=== PATIENT | male | born 1965 | race Caucasian/White ===

== ENCOUNTER 2024-10-28 12:39 | Inpatient (IN) | payer MEDICAID, SELFPAY ==
[2024-10-28] VITALS (11 sets, daily range): BP systolic 142–189; BP diastolic 68–97; PULSE 62–75; RESP 16–98; TEMP 36.7–37.8; O2SAT 95–98
--- NOTE | 2024-10-28 12:44 | EKG_ITS ---
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
--- NOTE | 2024-10-28 12:51 | PC.NURSE ---
CHARGE NURSE BUSY IN ROOM. TALKED W/ MARKEL RN ABOUT POSSIBLE NEED OF ROOM. EKG BEING DONE RIGHT NOW.
--- NOTE | 2024-10-28 12:59 | XR_ITS ---
Examination: AP chest single view Technique one AP portable semiupright chest single view Date and time: October 28, 2024, 1318 hrs., Comparison April 06, 2018 Indications: Chest pain beginning 2 days ago. Findings: Minor prominence left ventricle. No pneumonia or pulmonary edema. Impression: No active disease.
--- NOTE | 2024-10-28 13:01 | EDNOTE_ITS ---
<Statement entered by Elke Ace MD - 10/29/24 14:42> I, Elke Ace MD, have reviewed the history, exam, and assessment of the patient. I have evaluated the patient independently and agree with the plan of care documented by [ ]. All diagnostic studies were reviewed and discussed. I confirm the diagnosis as documented by the Resident. I was present during the Medical Decision Making for this patient. The patient's plan of care was created between myself and the Resident and consistent with our discussion of the patient's case. ED Chest Pain RME/HPI General Chief Complaint: Chest Pain Stated Complaint: CHEST PAIN, SOB Time Seen by Provider: 10/28/24 13:01 Source: patient Arrival date/time: 10/28/24 12:39 Mode of arrival: ambulatory RME / HPI RME / HPI narrative: Mr. Stanton is a 59-year-old male with past medical history of hypertension, hyperlipidemia, seizures (on phenytoin), gout, chronic back pain and diabetes mellitus with neuropathy who presented to [facility] emergency department on October 28, 2024 with a chief complaint of chest pain. Patient reported that his chest pain started last night when he was working at home, describes it as a stabbing pain radiating to his left shoulder. Patient reported that he went to work earlier this morning and then his pain worsened and is currently also experiencing the chest pain, similar in nature, 11/23. Patient endorses some palpitations reports that he feels like his heart is beating out of his chest, complains of dizziness at times as well. Patient reported that his chest pain was relieved with nitro which was given to him earlier in the ED. He denies any nausea, vomiting, shortness of breath and headache. Patient reports history of similar episode about 5 years ago reports that he was seen at the hospital by Dr. Siddiqi and then he had a cardiac cath done about [address] Hawkins which was negative, patient reports extensive family history of cardiac disease, reports his father multiple stents and his brother has had 7 stents placed. He denies any thyroid problems, smoking and heavy alcohol use. Related Data Home Medications ?Medication ?Instructions ?Recorded ?Confirmed loratadine 10 mg tablet (Claritin) 10 mg PO QDAY #0 ta bs 10/25/15 11/23/18 metformin 1,000 mg tablet 1,000 mg PO BID #0 tabs 10/1511/23/18 (Glucophage) phenytoin sodium extended 100 mg 100 mg PO BID #0 caps 10/25/15 11/23/18 capsule aspirin 81 mg tablet,delayed 81 mg PO QDAY ##0 7 11/23/18 release (Aspir-Low) glipizide 10 mg tablet 10 mg PO DAILY #0 tabs 04/2711/23/18 gabapentin 600 mg tablet 600 mg PO TID #0 tabs 11/23/18 losartan 100 mg tablet 100 mg PO QDAY #0 tabs 06/0811/23/18 omeprazole 40 mg capsule,delayed 40 mg PO QDAY ##0 11/23/18 release tizanidine 4 mg capsule 4 mg PO TID ##90 06/08/16 topiramate 50 mg tablet (Topamax) 50 mg PO BID #0 tabs 06/08/16 11/23/18 trazodone 100 mg tablet 50 mg PO HS #0 tabs 06/08/16 11/23/18 atorvastatin 40 mg tablet 40 mg PO QPM ##0 01/07/17 hydrochlorothiazide 25 mg tablet 25 mg PO QAM #0 tabs 01/07/17 11/23/18 nabumetone 500 mg tablet 500 mg PO BID 01/16/1811/23 fluoxetine 20 mg capsule 20 mg PO DAILY 06/08/1811/14 tamsulosin 0.4 mg capsule 0.4 mg PO QDAY 08/08/1811/14 Allergies Allergy/AdvReac Type Severity Reaction Status Date / Time empagliflozin Allergy Severe PANCREATITIS Verified 10/28/24 12:43 ATTACK Review of Systems Review of Systems Systems Reviewed: All systems reviewed, normal except as documented Past Medical History Past Medical History NEUROLOGIC: Positive Neurological Disorders and Seizures CARDIAC: Positive Cardiac Disorders, Angina, Hypercholesterolemia, Edema and Hypertension; Negative Congestive Heart Failure RESPIRATORY: Positive Chronic Obstructive Pulmonary Disease (COPD) GASTROINTESTINAL: Positive Gastrointestinal Disorders and Gastroesophageal Reflux Disease GENITOURINARY: Positive Genitourinary Disorders; Negative Renal Disease or Benign Prostatic Hyperplasia REPRODUCTIVE: Negative Testicular Cancer MUSCULOSKELETAL: Positive Musculoskeletal Disorders, Arthritis and Degenerative Joint Disease ENDOCRINE: Positive Endocrine Disorders and Diabetes Mellitus Type 2; Negative Diabetes Mellitus Type 1 HEMATOLOGIC: Negative Blood Disorders PSYCHO/SOCIAL: Positive Depression OTHER HISTORY: Positive Shingles; Negative Autoimmune Disease, Falls, Blood Transfusions, Anesthesia Reactions, Organ Transplant, Chemotherapy, MRSA, Chicken Pox or Testicular Cancer Family History FAMILY HISTORY: Positive Family Respiratory Disorders, Family Cardiac Disorders, Family Cancer and Family Surgery; Negative Family Anesthesia Reaction Surgical History SURGICAL: Negative Cardiac Surgery, Endocrine Surgery, Ear Surgery, Abdominal Surgery, Nephrectomy, Joint Replacement, Neurologic Surgery, Vasectomy or Organ Transplant Social History SMOKING STATUS: Never smoker SUBSTANCE USE: does not use Travel History EBOLA RISK: No ED Exam Narrative Physical exam: Physical Exam General: Awake and in moderate acute distress. Clutching his chest complaining of chest pain. Conversational and non-toxic appearing. HEENT: Normocephalic, atraumatic, mucous membranes moist. Heart: Regular rate and rhythm, no murmurs. Lungs: Clear to auscultation with no wheezing or crackles. Abdomen: Soft, nondistended, nontender, positive bowel sounds. ?No guarding or rebound tenderness. Neurologic: Alert and oriented x3, no gross neurological deficit, and patient able to move all 4 extremities. Extremities: No edema. Skin: No rash or ecchymoses. Course Course Course Narrative: Patient complained of chest pain was given sublingual nitroglycerin reported that his pain improved to 5. EKG shows sinus rhythm no acute ST-T changes noted CBC: WBC 3.4, RBC 5.23, hemoglobin 14.4, hematocrit 40.5. CMP: Sodium 132 glucose 383, potassium 4.3, chloride 98, bicarb 25.6, BUN 16, creatinine 1.3, GFR greater than 60, calcium 10.1, magnesium 1.8, total bilirubin AST ALT within normal limits, alk phos 126 Troponin negative less than 0.20, BNP 55 Chest x-ray negative for mediastinal widening, pneumonia Patient given Aspirin loading dose, nitroglycerin patch, 3 units subcutaneous regular insulin and morphine 2 mg Case discussed with hospitalist team hospitalist requesting CTA to rule out dissection, CTA will be obtained. Hospitalist team discussed the case with final inspector Dr. Palacio, see hospitalist note for details per Dr. 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 Q4H START 00 Care 10/28/24 14:16 Active Continuous Pulse Oximetry NOW Care 10/28/24 14:16 Completed EKG (ED ONLY) *Do not use* NOW Care 10/28/24 12:44 Completed Insert IV NOW Care 10/28/24 14:[address] angio chest Stat Exams 10/28/24 14:57 Completed CXRP [XR chest 1V portable] Stat Exams 10/28/24 12:59 Completed EKG (ED Only) Stat Exams 10/28/24 12:44 Draft BNP [B-Type Natriuretic Peptide] Stat Lab 10/28/24 13:00 Completed CBC Stat Lab 10/28/24 13:00 Completed CMP [Comprehensive Metabolic Panel] Stat Lab 10/28/24 13:00 Completed Magnesium Stat Lab 10/28/24 13:00 Completed Troponin I Stat Lab 10/28/24 13:00 Completed Troponin I Stat Lab 10/28/24 14:36 Completed Aspirin Med 10/28/24 14:15 Discontinued 325 mg PO X1 ONE INSULIN LISPRO (AdmeLOG) [HumaLOG] Med 10/28/24 14:04 Discontinued 5 unit SC X1 ONE Insulin Regular Med 10/28/24 14:14 Discontinued 3 unit SC X1 ONE Morphine* Inj Med 10/28/24 14:43 Discontinued 2 mg IVP X1 ONE Nitroglycerin [Nitro-dur Patch] Med 10/28/24 14:14 Discontinued 0.4 mg TOP X1 ONE Nitroglycerin [Nitrostat 1/150] Med 10/28/24 12:58 Discontinued 0.4 mg SL X1 ONE mg Hyd/Al Hyd/Rod Susp [Maalox Susp] Med 10/28/24 14:57 Discontinued 30 ml PO X1 ONE Vital Signs Vital signs: Vital Signs Temperature 98.1 F 10/28/24 12:48 Pulse Rate 65 10/28/24 12:48 Respiratory Rate 26 H 10/28/24 12:48 Blood Pressure 189/91 H 10/28/24 12:48 Pulse Oximetry (%) 98 10/28/24 12:48 Oxygen Delivery Method Room Air 10/28/24 12:48 Chest Pain MDM Narrative MDM Narrative:: #ACS rule out #Cardiac vs Non-Cardiac chest pain #PE, provoked vs unprovoked Patient presented with chest pain reported to be on the left side of his chest radiating back to his scapula and left upper extremity. Pain started after exertion yesterday at home, reports sudden onset constant increasing in severity. Reports that he went to work earlier this morning and his pain worsened and he decided to come to ED for evaluation. EKG negative for any acute ST-T changes, troponin negative x 2 Patient has hypertension hyperlipidemia diabetes mellitus and strong family history of cardiac disease (in father and brother) Patient continues to have pain reports did improve with nitro, was given nitro patch and morphine Case discussed with hospitalist team hospitalist requesting CTA to rule out dissection, CTA will be obtained. Hospitalist team discussed the case with final inspector Dr. Palacio, see hospitalist note for details per Dr. Palacio patient's chest pain is noncardiac and patient is stable to be discharged CTA Chest Positive for small pulmonary artery emboli in right lower lobe pulmonary artery branches 1700 Hospitalist Team Consulted again, they will admit the patient for further workup Case discussed with Attending Physician Dr. Db Dias MD Internal Medicine PGY-2 Disclaimer: This note was dictated by speech recognition. Minor errors in construction skills teacher may be present due to voice recognition software. Patient data External records reviewed:: [facility] previous records Clinical information provided by:: patient Social determinants that could affect healthcare access:: none Patient has the following chronic illnesses:: as above How is presenting disease/condition affected by chronic disease/condition?: exacerbated by Evaluation data The following diagnostics were reviewed and interpreted by me:: lab results, radiology exam(s) and EKG tracing(s) Lab and/or radiology exams considered but not ordered:: None Interpretation Summary: EKG shows sinus rhythm no acute ST-T changes noted CBC: WBC 3.4, RBC 5.23, hemoglobin 14.4, hematocrit 40.5. CMP: Sodium 132 glucose 383, potassium 4.3, chloride 98, bicarb 25.6, BUN 16, creatinine 1.3, GFR greater than 60, calcium 10.1, magnesium 1.8, total bilirubin AST ALT within normal limits, alk phos 126 Troponin negative less than 0.20, BNP 55 Chest x-ray negative for mediastinal widening, pneumonia Repeat Troponin negative less than 0.20 CTA Chest CTA Chest Positive for small pulmonary artery emboli in right lower lobe pulmonary artery branches Medications / Prescriptions Medications or Prescriptions considered but not ordered:: None Medication administrations:: Medication Administration History Discontinued Medications Al Hydrox/Mg Hydrox/Simethicone (Mg Hyd/Al Hyd/Rod (Maalox Reg) Susp 30 Ml Udc) 30 ml PO X1 ONE Stop: 10/28/24 14:58 Last Admin: 10/28/24 15:04 Dose: 30 ml Documented By: BOBO Aspirin (Aspirin 325 Mg Tablet) 325 mg PO X1 ONE Stop: 10/28/24 14:16 Last Admin: 10/28/24 14:28 Dose: 325 mg Documented By: BOBO Insulin Human Lispro (Insulin Lispro (Admelog) 1 Unit/0.01 Ml Unit) 5 unit SC X1 ONE Stop: 10/28/24 14:05 Last Admin: 10/28/24 14:40 Dose: Not Given Documented By: BOBO Non-Admin Reason: Cancelled by Provider Insulin Human Regular (Insulin Hum Regular 1 Unit/0.01 Ml (Per Unit)) 3 unit SC X1 ONE Stop: 10/28/24 14:15 Last Admin: 10/28/24 14:32 Dose: 3 unit Documented By: BOBO Co-signed By: ROSSY Morphine Sulfate (Morphine Sulf Inj 4 Mg/Ml Vial) 2 mg IVP X1 ONE Stop: 10/28/24 14:44 Last Admin: 10/28/24 15:03 Dose: 2 mg Documented By: BOBO Nitroglycerin (Nitroglycerin 0.4 Mg Subl Btl #25) 0.4 mg SL X1 ONE Stop: 10/28/24 12:59 Last Admin: 10/28/24 13:18 Dose: 1 bottle Documented By: BOBO Nitroglycerin (Nitroglycerin 0.4 Mg/Hr Patch.Td24) 0.4 mg TOP X1 ONE Stop: 10/28/24 14:15 Last Admin: 10/28/24 14:30 Dose: 0.4 mg Documented By: BOBO As Above Consultations Consultation(s) initiated? (list below): No Diagnosis Chest Pain Differential Diagnosis: stable angina, unstable angina pectoris, atypical chest pain, st elevation myocardial infarction and chest pain Most likely diagnosis given after review of the tests above:: Unstable Angina vs PE Admission Indicated Admission indicated?: indicated Admission Request Was there a request for admission?: Yes Admission Attestation Admission request attestation: Discussed case with Dr Russo from Hospitalist service regarding admission. Discussed patients ED course, exam findings, labs, and radiology results. The Hospitalist agrees to accept the patient for admission. Disposition Plan Disposition Plan: Admit Discharge Plan Plan Patient Disposition: Admit Acute Care w/in Hospital Prescriptions/Referrals Prescriptions/Med Rec: No Action tamsulosin 0.4 mg capsule 0.4 mg PO QDAY metformin [Glucophage] 1,000 MG tablet 1,000 mg PO BID Qty: 0 phenytoin sodium extended 100 mg Capsule 100 mg PO BID Qty: 0 Patient Comments: FOR SEIZURE CONTROL loratadine [Claritin] 10 MG tablet 10 mg PO QDAY Qty: 0 glipizide 10 MG tablet 10 mg PO DAILY Qty: 0 aspirin [Aspir-Low] 81 mg Tablet,Delayed Release (Dr/Ec) 81 mg PO QDAY Qty: 0 gabapentin 600 MG tablet 600 mg PO TID Qty: 0 omeprazole 40 MG capsule,delayed release(DR/EC) 40 mg PO QDAY Qty: 0 trazodone 100 mg Tablet 50 mg PO HS Qty: 0 losartan 100 mg Tablet 100 mg PO QDAY Qty: 0 topiramate [Topamax] 50 MG tablet 50 mg PO BID Qty: 0 tizanidine 4 mg Capsule 4 mg PO TID Qty: 90 atorvastatin 40 mg Tablet 40 mg PO QPM Qty: 0 hydrochlorothiazide 25 MG tablet 25 mg PO QAM Qty: 0 nabumetone 500 mg Tablet 500 mg PO BID fluoxetine 20 mg Capsule 20 mg PO DAILY Referrals: No Primary/Family,Physician [Primary Care Provider] - In 1 week Problem List Clinical Impression: Cardiac chest pain Patient/Caregiver Discharge Instructions Print Language: Cymraes Stand Alone Forms: [employer] Award Info., Patient Portal Info Letter
--- NOTE | 2024-10-28 13:13 | PC.NURSE ---
PATIENT ARRIVED ED WITH COMPLAINT OF CHEST PAIN, PATIENT STATES HE HAD PAIN LAST NIGHT AND HE CAME BACK TODAY. PATIENT DENIES NAUSEA OR VOMITING AND DESCRIBES PAIN TO BE SHARP AND RADIATES TO LEFT ARM. IV, MONITOR ESTABLISHED. CALL LIGHT WITHIN REACH.
[2024-10-28] MEDS: NITROGLYCERIN 0.4 MG SUBL BTL #25 SL (13:18)
[2024-10-28 13:36] LABS: Basophils # (Auto) 0.1 Thou/mm3 (0.0-0.2); Basophils % (Auto) 1 % (0-2.5); Eosinophils # (Auto) 0.1 Thou/mm3 (0.0-0.5); Eosinophils % (Auto) 2 % (0-10); Hematocrit 40.5 % (41.0-53.0); Hemoglobin 14.4 g/dL (13.5-16.0); Immature Granulocytes Auto 0.05 Thou/mm3 (0.00-0.00); Lymphocytes # (Auto) 2.4 Thou/mm3 (1.0-4.8); Lymphocytes % (Auto) 28 % (10-50); Mean Corpuscular HGB Conc 35.6 g/dl (31.0-37.0); Mean Corpuscular Hemoglobin 27.5 pg (25.0-35.0); Mean Corpuscular Volume 77 fL (80-100); Monocytes # (Auto) 0.7 Thou/mm3 (0.0-0.8); Monocytes % (Auto) 8 % (0-12); Neutrophils # (Auto) 5.2 Thou/mm3 (1.8-7.7); Neutrophils % (Auto) 62 % (37-80); Nucleated Red Blood Cell # 0.00 Thou/mm3 (0.00-0.00); Nucleated Red Blood Cell % 0 /100 WBC (0); Platelet Count 221 Thou/mm3 (140-440); RDW Standard Deviation 35.4 fL (35.1-43.9); Red Blood Count 5.23 Miln/mm3 (4.50-5.90); White Blood Count 8.4 Thou/mm3 (3.8-10.6)
[2024-10-28 14:02] LABS: Alanine Aminotransferase 22 U/L (10-49); Albumin, Serum 4.4 gm/dL (3.5-5.0); Albumin/Globulin Ratio 1.5 (1.2-2.2); Alkaline Phosphatase 126 U/L (46-116); Anion Gap 8 (7-16); Aspartate Amino Transferase 22 U/L (0-34); BUN/Creatinine Ratio 12 Ratio (12-20); Bilirubin,Total 0.6 mg/dL (0.3-1.2); Blood Urea Nitrogen 16 mg/dL (9-23); Calcium 10.1 mg/dL (8.3-10.6); Calcium (Corrected) 10.1 mg/dL (8.5-10.1); Carbon Dioxide 25.6 mMol/L (20.0-31.0); Chloride 98 mMol/L (98-107); Creatinine (Component) 1.3 mg/dL (0.6-1.3); Globulin 3.0 gm/dL (2.3-3.5); Glucose 383 mg/dL (74-106); Magnesium 1.8 mg/dL (1.6-2.6); Osmolality,Calculated 281 (275-295); Potassium 4.3 mMol/L (3.4-5.1); Sodium 132 mMol/L (136-145); Total Protein 7.4 gm/dL (5.7-8.2); Troponin I < 0.020 ng/mL (0.0-0.045); eGFR > 60 See Note
[2024-10-28 14:06] LABS: B-Type Natriuretic Peptide 55 pg/mL (0-100)
[2024-10-28] MEDS: NITROGLYCERIN 0.4 MG/HR PATCH.TD24 TOP (14:30)
[2024-10-28] MEDS: INSULIN HUM REGULAR 1 UNIT/0.01 ML (PER UNIT) 3 UNIT SC (14:32)
--- NOTE | 2024-10-28 14:57 | XR_ITS ---
Examination: CTA chest with intravenous contrast 2-D reconstructions 3-D reconstructions, vascular Date and time of exam: October 17 been 2024, 1735 hrs. Indications: Chest pain shortness of breath today. CTDI: vol (mGy) 167. DLP: (mGycm) 422. Technique: Multiple axial sections of the thorax have been obtained. 3 mm slice thickness, from below the hemidiaphragms to above the apices of the lungs. Mediastinal and lung density settings have been obtained. 2-D sagittal and coronal reconstructions. 3-D angiographic renderings, 3-D volume renderings, 3D post processing, vascular maximum intensity projections obtained. Contrast administered is 100 cc Isovue-370.. Low dose protocols were performed. One or more of the following dose reduction techniques were used; automated exposure control, adjustment of the mA and/or KV according to patient size, use of iterative reconstruction technique. Findings: No thoracic aortic aneurysmal dilatation or dissection. Positive for pulmonary artery emboli in lower lobe pulmonary artery branches No paratracheal tracheobronchial or bronchopulmonary adenopathy Moderate vascular congestion. No lobar pneumonia or pulmonary edema Liver is mildly irregular in contour, no gallstones visualized Spleen is not enlarged No pancreatic mass Impression: Negative for thoracic aortic aneurysmal dilatation or dissection Positive for small pulmonary artery emboli in right lower lobe pulmonary artery branches
[2024-10-28] MEDS: MORPHINE SULF INJ 4 MG/ML VIAL 2 MG IVP ×2 (15:03→19:04)
[2024-10-28] MEDS: MG HYD/AL HYD/SIME (Maalox Reg) SUSP 30 ML UDC PO (15:04)
[2024-10-28 15:19] LABS: Troponin I < 0.020 ng/mL (0.0-0.045)
--- NOTE | 2024-10-28 16:30 | PC.NURSE ---
PATIENT IN ROOM WITH COMPLAINT OF DIZZINESS AND CONFUSION PER . ALSO STATES THAT PATIENT HAS NOT BEEN SLEEPING FOR THE LAST 3 NIGHTS SO THIS MORNING HE TOOK TRAZADONE AT 0900 AND BECAME EVEN MORE CONFUSED. PATIENT IN ROOM WITH NO COMPLAINT OF PAIN. PATIENT ACTING BIZARRE AND LAUGHING. PATIENT ABLE TO FOLLOW COMMANDS BUT HAS OUTBURSTS. STATES SHE IS CONCERNED THAT PATIENT HAS TAKEN SOME SORT OF DRUGS. PATIENT WILL BE EVALUATED AT THIS TIME.
--- NOTE | 2024-10-28 17:13 | XR_ITS ---
Examination: Venous duplex lower extremity sonogram, bilateral. Date and time of exam: October 28, 2024, 1907 hrs. Indications: Chest pain beginning 4 days ago, small lower lobe right pulmonary artery emboli on CT chest study today Technique: Multiple sonographic images of the deep venous system have been obtained. B-mode/2-D grayscale imaging of vascular structures and Doppler spectral analysis (waveforms) and color performed Both legs are examined. Findings: Deep venous systems do not demonstrate abnormal echogenicity. All visualized deep veins exhibit compressibility. All visualized deep veins exhibit augmentation. Impression: Negative for deep vein thrombosis
--- NOTE | 2024-10-28 17:17 | ECHO_ITS ---
Transthoracic Echo Report Ht (in): 70 Wt (lb): 200 Exam Location: Echo Lab Status: Emergency Risk Modeler: Shauna Aiken Indications: Procedure Performed: BP: 141 / 79 HR: 73 MEASUREMENTS (Male / Female) Normal Values 2D ECHO LV Diastolic Diameter PLAX 4.2 cm 4.2 - 5.9 / 3.9 - 5.3 cm LV Systolic Diameter PLAX 2.7 cm IVS Diastolic Thickness 1.2 cm 0.6 - 1.0 / 0.6 - 0.9 cm LVPW Diastolic Thickness 1.2 cm 0.6 - 1.0 / 0.6 - 0.9 cm LV Relative Wall Thickness 0.6 LVOT Diameter 2.0 cm Aortic Root Diameter 3.3 cm LA Systolic Diameter LX 3.5 cm 3.0 - 4.0 / 2.7 - 3.8 cm LV Ejection Fraction MOD BP 61.4 % >= 55 % LV Cardiac Index MOD BP 2579.7 cm?/min?m? LV Ejection Fraction MOD 4C 60.8 % LV Cardiac Index MOD 4C 2473.8 cm?/min?m? LV Ejection Fraction 4C AL 61.9 % LV Cardiac Index 4C AL 2631.6 cm?/min?m? LV Ejection Fraction MOD 2C 58.5 % LV Cardiac Index MOD 2C 2340.6 cm?/min?m? LV Ejection Fraction 2C AL 60.2 % LV Cardiac Index 2C AL 2426.6 cm?/min?m? M-MODE Aortic Root Diameter MM 2.7 cm LA Systolic Diameter MM 4.2 cm LA Ao Ratio MM 1.6 AV Cusp Separation MM 1.9 cm DOPPLER AV Peak Velocity 148.0 cm/s AV Peak Gradient 8.8 mmHg AV Mean Gradient 5.0 mmHg AV Velocity Time Integral 29.8 cm LVOT Peak Velocity 126.0 cm/s LVOT Peak Gradient 6.4 mmHg LVOT Velocity Time Integral 28.7 cm LVOT Cardiac Index 3080.8 cm?/min?m? AV Area Cont Eq vti 3.0 cm? AV Area Cont Eq pk 2.7 cm? MV Area PHT 3.0 cm? Mitral E Point Velocity 58.2 cm/s Mitral A Point Velocity 59.2 cm/s Mitral E to A Ratio 1.0 LV E' Lateral Velocity 10.4 cm/s Mitral E to LV E' Lateral Ratio 5.6 LV E' Septal Velocity 6.9 cm/s Mitral E to LV E' Septal Ratio 8.5 TR Peak Velocity 251.0 cm/s TR Peak Gradient 25.2 mmHg PV Peak Velocity 126.0 cm/s PV Peak Gradient 6.4 mmHg FINDINGS Left Ventricle Normal left ventricular size, wall thickness, systolic function with no obvious regional wall motion abnormalities. Normal left ventricular diastolic filling pattern for age. The ejection fraction is visually estimated at 65 %. Right Ventricle The right ventricle is normal in size and systolic function. Left Atrium The left atrium is normal by two-dimensional, color flow and Doppler imaging with no structural abnormalities, no thrombus formation present. Right Atrium The right atrium is normal by two-dimensional imaging, color flow and Doppler imaging with no structural abnormalities, no thrombus formation present. Atrial Septum The interatrial septum appears normal with no evidence of a shunt. Aorta The aorta is normal by two-dimensional, color flow and Doppler interrogation. Mitral Valve The mitral valve is normal by two-dimensional, color flow and Doppler interrogation. There is no significant mitral valve regurgitation, stenosis or prolapse. Aortic Valve The aortic valve is trileaflet and normal by two-dimensional, color flow and Doppler interrogation. There is no significant aortic valve regurgitation. Tricuspid Valve The tricuspid valve is normal by two-dimensional, color flow and Doppler interrogation. There is trace tricuspid valve regurgitation. Pulmonic Valve The pulmonic valve is not well visualized. There is no significant pulmonic valve regurgitation. Vessels The pulmonary artery appears normal. The inferior vena cava pulmonary and hepatic veins appear normal. Pericardium The pericardium is normal by two-dimensional imaging. There is no significant pericardial effusion. CONCLUSIONS Indicaiton: Pulmonary embolism The transthoracic study is normal by two-dimensional, color flow imaging and Doppler interrogation. Normal LV size and function. Approximate ejection fraction is 65%. The RV is normal in size and systolic function. Mild to trace tricuspid valve regurgitation normal PA pressure no evidence of pulmonary hypertension. No evidence of right ventricular volume or pressure overload. Hayley Nagel (Electronically Signed) Final Date: 30 October 2024 18:02
--- NOTE | 2024-10-28 17:27 | PD.RESHP ---
Documentation for date of: 10/28/24 [facility] History of Present Illness Chief complaint: Chest pain History of present illness: 59-year-old male with significant past medical history of hypertension, hyperlipidemia, seizure disorder, gout, chronic back pain, diabetes mellitus, diabetic neuropathy, panic attacks, GERD presented to the hospital with chief complaints of severe chest pain since yesterday. Patient reported that he was doing routine house chores, cleaning the dishes and noted sudden onset chest pain, located in the center, stabbing type, radiating to the back of the chest and to the jaw associated with mild diaphoresis, palpitations but denies shortness of breath, pedal edema. Reported that pain is continuous and noted to be worsening with the physical exertion. Despite of the chest pain, patient went to his work and after working for 3 hours, as the pain is bothering him he came to the ED for further evaluation. Denies fever, nausea, vomitings, diarrhea, abdominal pain, syncopal episode, pedal edema, orthopnea, PND. Patient had similar complaints almost 5 years ago for which he followed with Dr. Hawkins in [place] and got cardiac cath at that time that did not show any significant abnormality and also reported that he is not taking any aspirin. After that he did not follow-up with any physical testing supervisor and does not follow-up with his primary care provider regularly. ED course: - Vitals at the time of admission is significant for blood pressure 189/91 mmHg, respiratory 26/min - Labs at the time of admission are significant for sodium 132, creatinine 1.3, glucose 383, troponin is negative - EKG done at the time of admission showed normal sinus rhythm with first-degree heart block without any ST T wave changes - Chest x-ray done at the time of admission did not show any infiltrates - CT angio chest was done that is negative for aneurysm/dissection but noted to have small pulmonary artery emboli in the right lower lobe pulmonary artery branches. - Patient is admitted in the hospital in view of pulmonary embolism Past medical history: As per HPI Past surgical history: As per HPI Social history: Lives alone at home. Recently lost her 4 months ago. Denies smoking, alcohol, other illicit drug abuse. Allergies: Empagliflozin Review of Systems Review of Systems Systems Reviewed: All systems reviewed, normal except as documented Past Medical History Past Medical History NEUROLOGIC: Positive Neurological Disorders and Seizures CARDIAC: Positive Cardiac Disorders, Angina, Hypercholesterolemia, Edema and Hypertension; Negative Congestive Heart Failure RESPIRATORY: Positive Chronic Obstructive Pulmonary Disease (COPD) GASTROINTESTINAL: Positive Gastrointestinal Disorders and Gastroesophageal Reflux Disease GENITOURINARY: Positive Genitourinary Disorders; Negative Renal Disease or Benign Prostatic Hyperplasia REPRODUCTIVE: Negative Testicular Cancer MUSCULOSKELETAL: Positive Musculoskeletal Disorders, Arthritis and Degenerative Joint Disease ENDOCRINE: Positive Endocrine Disorders and Diabetes Mellitus Type 2; Negative Diabetes Mellitus Type 1 HEMATOLOGIC: Negative Blood Disorders PSYCHO/SOCIAL: Positive Depression OTHER HISTORY: Positive Shingles; Negative Autoimmune Disease, Falls, Blood Transfusions, Anesthesia Reactions, Organ Transplant, Chemotherapy, MRSA, Chicken Pox or Testicular Cancer Family History FAMILY HISTORY: Positive Family Respiratory Disorders, Family Cardiac Disorders, Family Cancer and Family Surgery; Negative Family Anesthesia Reaction Surgical History SURGICAL: Negative Cardiac Surgery, Endocrine Surgery, Ear Surgery, Abdominal Surgery, Nephrectomy, Joint Replacement, Neurologic Surgery, Vasectomy or Organ Transplant Social History SMOKING STATUS: Never smoker SUBSTANCE USE: does not use Travel History EBOLA RISK: No Exam Vital Signs Temp Pulse Resp BP Pulse Ox O2 Del Method 99.3 F 63 16 142/82 H 95 Room Air 10/28/24 16:37 10/28/24 16:37 10/28/24 16:37 10/28/24 16:37 10/28/24 16:37 10/28/24 16:37 Narrative Exam General: Awake. appears in distress HEENT: Normocephalic, atraumatic, mucous membranes moist. Heart: Regular rate and rhythm, no murmurs. Lungs: Clear to auscultation with no wheezing or crackles. Abdomen: Soft, nondistended, nontender, positive bowel sounds. ?No guarding or rebound tenderness. Neurologic: Alert and oriented x3, no gross neurological deficit, and patient able to move all 4 extremities. Extremities: No edema. Skin: No rash or ecchymoses. Results: Labs 10/29/24 04:44 10/29/24 04:44 Labs: Short CBC 10/28/24 Range/Units 13:00 WBC 8.4 (3.8-10.6) Thou/mm3 Hgb 14.4 (13.5-16.0) g/dL Hct 40.5 L (41.0-53.0) % Plt Count 221 (140-440) Thou/mm3 BMP 10/28/24 13:00 Sodium 132 L Potassium 4.3 Chloride 98 Carbon Dioxide 25.6 BUN 16 Creatinine 1.3 Glucose 383 H Calcium 10.1 Cardiac Enzymes 10/28/24 10/28/24 Range/Units 13:00 14:36 Troponin I < 0.020 < 0.020 (0.0-0.045) ng/mL Liver Function 10/28/24 Range/Units 13:00 Total Bilirubin 0.6 (0.3-1.2) mg/dL AST 22 (0-34) U/L ALT 22 (10-49) U/L Alkaline Phosphatase 126 H (46-116) U/L Albumin 4.4 (3.5-5.0) gm/dL Quality Measures Quality Measures none Medications Home Medications and Allergies Home Medications ?Medication ?Instructions ?Recorded ?Confirmed ?Type loratadine 10 mg tablet (Claritin) 10 mg PO QDAY #0 tabs 10/25/15 10/28/24 History metformin 1,000 mg tablet 1,000 mg PO BID #0 tabs 10/25/15 10/28/24 History (Glucophage) gabapentin 600 mg tablet 600 mg PO TID #0 tabs 06/08/16 10/28/24 History losartan 100 mg tablet 100 mg PO QDAY #0 tabs 06/08/16 10/28/24 History omeprazole 40 mg capsule,delayed 40 mg PO QDAY ##0 06/08/16 10/28/24 History release atorvastatin 40 mg tablet 40 mg PO QPM ##0 01/07/17 10/28/24 History hydrochlorothiazide 25 mg tablet 25 mg PO QAM #0 tabs 01/07/17 10/28/24 History nabumetone 500 mg tablet 500 mg PO BID 01/16/18 10/28/24 History fluoxetine 20 mg capsule 20 mg PO DAILY 06/08/18 10/28/24 History allopurinol 100 mg tablet 100 mg PO .everyday 10/28/24 10/28/24 History atenolol 100 mg tablet 100 mg PO HS 10/28/24 10/28/24 History fenofibrate 160 mg tablet 160 mg PO .everyday 10/28/24 10/28/24 History hydroxyzine HCl 50 mg tablet 50 mg PO HS 10/28/24 10/28/24 History phenytoin sodium extended 100 mg 100 mg PO .everyday 10/28/24 10/28/24 History capsule pravastatin 80 mg tablet 80 mg PO .everyday 10/28/24 10/28/24 History tizanidine 4 mg tablet 4 mg PO HS 10/28/24 10/28/24 History trazodone 100 mg tablet 100 mg PO HS 10/28/24 10/28/24 History valsartan 160 mg tablet 160 mg PO .Am 10/28/24 10/28/24 History Allergies Allergy/AdvReac Type Severity Reaction Status Date / Time empagliflozin Allergy Severe PANCREATITIS Verified 10/28/24 12:43 ATTACK Visit Medications Acetaminophen (Acetaminophen 325 Mg Tablet) 650 mg PO Q6H PRN PRN Reason: Fever >100.3 Stop: 11/27/24 17:12 Albuterol/Ipratropium (Albuterol/Ipratropium (Duoneb) Rt Guillermina 3 Ml Nebu) 3 ml INH Q4HR PRN PRN Reason: SHORTNESS OF BREATH OR WHEEZE Stop: 11/27/24 17:12 Dextrose (Dextrose 50%-Water Inj 50 Ml Syringe) 25 ml IV Q15MIN PRN PRN Reason: BG 50-70 responsive npo pt Stop: 11/27/24 17:22 Dextrose (Dextrose 50%-Water Inj 50 Ml Syringe) 50 ml IV Q15MIN PRN PRN Reason: BG <50 OR BG <70 & pt unresponsive Stop: 11/27/24 17:22 Glucagon (Glucagon Inj 1 Mg Vial) 1 mg IM Q15MIN PRN PRN Reason: BG <70, and no IV access Heparin Sodium (Porcine) (Heparin Sod Inj 5000 Unit/Ml Vial) 8,000 unit IV X1 ONE; Protocol Stop: 10/28/24 17:14 Heparin Sodium/Dextrose (Heparin In D5w Ivpb) 25,000 unit in 250 mls @ 0 mls/hr IV .Q0M ALISHA; Protocol Stop: 11/11/24 17:29 Insulin Human Lispro (Insulin Lispro (Admelog) 1 Unit/0.01 Ml Unit) 0 unit SC AC ALISHA; Protocol Stop: 11/28/24 07:29 Ondansetron HCl (Ondansetron Inj 2 Mg/Ml Inj 2 Ml) 4 mg IVP Q6H PRN; Protocol PRN Reason: NAUSEA OR VOMITING Stop: 11/27/24 17:12 Pantoprazole Sodium (Pantoprazole Inj 40 Mg Vial) 40 mg IVP QDAY ALISHA Stop: 11/28/24 08:59 Phenytoin (Phenytoin 100 Mg/4 Ml Udc) 100 mg PO BID ALISHA Stop: 11/27/24 20:59 Sennosides (Senna Tablet) 1 tab PO QDAY PRN; Protocol PRN Reason: constipation Stop: 11/27/24 17:12 Discontinued Medications Al Hydrox/Mg Hydrox/Simethicone (Mg Hyd/Al Hyd/Rod (Maalox Reg) Susp 30 Ml Udc) 30 ml PO X1 ONE Stop: 10/28/24 14:58 Last Admin: 10/28/24 15:04 Dose: 30 ml Aspirin (Aspirin 325 Mg Tablet) 325 mg PO X1 ONE Stop: 10/28/24 14:16 Last Admin: 10/28/24 14:28 Dose: 325 mg Insulin Human Lispro (Insulin Lispro (Admelog) 1 Unit/0.01 Ml Unit) 5 unit SC X1 ONE Stop: 10/28/24 14:05 Last Admin: 10/28/24 14:40 Dose: Not Given Insulin Human Regular (Insulin Hum Regular 1 Unit/0.01 Ml (Per Unit)) 3 unit SC X1 ONE Stop: 10/28/24 14:15 Last Admin: 10/28/24 14:32 Dose: 3 unit Morphine Sulfate (Morphine Sulf Inj 4 Mg/Ml Vial) 2 mg IVP X1 ONE Stop: 10/28/24 14:44 Last Admin: 10/28/24 15:03 Dose: 2 mg Nitroglycerin (Nitroglycerin 0.4 Mg Subl Btl #25) 0.4 mg SL X1 ONE Stop: 10/28/24 12:59 Last Admin: 10/28/24 13:18 Dose: 1 bottle Nitroglycerin (Nitroglycerin 0.4 Mg/Hr Patch.Td24) 0.4 mg TOP X1 ONE Stop: 10/28/24 14:15 Last Admin: 10/28/24 14:30 Dose: 0.4 mg Assessment & Plan Plan 59-year-old male with significant past medical history of hypertension, hyperlipidemia, seizure disorder, gout, chronic back pain, diabetes mellitus, diabetic neuropathy, panic attacks, GERD presented to the hospital with chief complaints of severe chest pain since yesterday and admitted for pulmonary embolism # Pulmonary embolism # Angina, cardiac versus noncardiac - Patient presented to the hospital with chief complaints of sudden onset chest pain since yesterday associated with radiation of pain to the left scapula, associated with diaphoresis - But reported that during sleep he did not feel any chest pain and again noted this morning and as it once and after going to work he came to the ED for further evaluation. - Had similar complaints in the past 5 years ago for which cardiac cath was done and noted to have no significant abnormality. Since then did not follow-up with any physical testing supervisor and not on any antiplatelets - Denies fever, shortness of breath, any other symptoms - Vitals at the time of admission is significant for blood pressure 189/91 mmHg, respiratory 26/min - Labs at the time of admission are significant for sodium 132, creatinine 1.3, glucose 383, troponin is negative - EKG done at the time of admission showed normal sinus rhythm with first-degree heart block without any ST T wave changes - Chest x-ray done at the time of admission did not show any infiltrates - CT angio chest was done that is negative for aneurysm/dissection but noted to have small pulmonary artery emboli in the right lower lobe pulmonary artery branches. - Patient is admitted in the hospital in view of pulmonary embolism Plan - Induction Machine Setter, Dr. Palacio was consulted, will appreciate his recommendations - Echocardiogram was ordered, will follow-up with the results - Started on heparin drip, will transition to Eliquis later - Venous Doppler of bilateral lower extremity is ordered, will follow-up with results - Patient is currently hemodynamically stable and does not need any oxygen - Admitted to telemetry for further management - As the patient does not have any elevated tropes and is hemodynamically stable, noted to have mild pulmonary embolism, might not need mechanical thrombectomy or thrombolysis at this point # Hypertensive urgency - Blood pressure at the time of admission is 189/91 mmHg - Later decreased after getting 2 doses of sublingual nitrate and morphine to SBP of 160 Plan - Low-sodium diet - Started on losartan 50 mg daily, will increase the dose based on the blood pressures - Medication reconciliation is ordered # History of diabetes mellitus - Unsure if the patient is taking medications or not Plan - HbA1c is ordered - Insulin sliding scale is ordered # Diabetic neuropathy - Patient is using gabapentin 600 mg thrice daily at home - Started gabapentin Hospital Maintenance: Dispo: Tele DVT ppx: Heparin drip GI ppx: Pantoprazole Diet: Carb consistent and low sodium IV lines: Peripheral Code status: Full Patient plan of care was discussed with the attending physician, Dr. Chitra Russo, PGY2 Attending Provider Attestation/Addendum I attest that I was physically present for the evaluation, physical examination, lab and imaging review of the patient with the residents. I discussed the case with the residents and agree with the findings and plans of care as documented above. After examination of the patient and review of the clinical data I feel that this patient needs admission to the hospital for further treatment/evaluation. Marlon Buenrostro MD
[2024-10-28 18:08] LABS: Partial Thromboplastin Time 22.9 Seconds (22.0-36.0)
[2024-10-28] MEDS: Heparin/D5w 25K 250 ML Ivpb 25,000 UNIT/250 ML BAG 16.033 UNIT IV (18:11)
[2024-10-28] MEDS: LOSARTAN POTASSIUM 25 MG TABLET 50 MG PO (18:40)
[2024-10-28] MEDS: HEPARIN SOD INJ 5000 UNIT/ML VIAL 7150 UNIT IV (18:41)
--- NOTE | 2024-10-28 20:50 | PRELIM_ITS ---
Bilateral lower extremity venous Doppler ultrasound. October 28, 2024 at 1907 hours Clinical history: Pulmonary embolism. Findings: Carrasco scale, color flow and spectral Doppler evaluation of the lower extremity deep veins was performed. Right: The common femoral, superficial femoral and popliteal veins are patent and compressible. Normal respiratory variation and augmentation are noted. The great saphenous vein is patent at the level of the saphenofemoral junction. The posterior tibial and peroneal veins are patent and compressible. Left: The common femoral, superficial femoral and popliteal veins are patent and compressible. Normal respiratory variation and augmentation are noted. The great saphenous vein is patent at the level of the saphenofemoral junction. The posterior tibial and peroneal veins are patent and compressible. Impression: No evidence of deep venous thrombosis in both lower extremities. Report Electronically Signed By: Justino Razo 10/28/2024 8:49:55 PM [EST]
[2024-10-28] MEDS: MORPHINE SULF INJ 4 MG/ML VIAL IVP (21:34)
[2024-10-28] MEDS: GABAPENTIN 300 MG CAPSULE 600 MG PO (21:34)
[2024-10-28] MEDS: ATORVASTATIN CALCIUM 20 MG TABLET 40 MG PO (21:35)
--- NOTE | 2024-10-28 22:00 | PC.NURSE ---
Made MD aware of patient questioning if he could have is his home medication trazdone and tizinidine for night time. per MD contraindicated due to his chest pain. to update patient. md also made aware of blood sugar of 307 mg/ dL . to fix Lispro order of AC to AC HS
[2024-10-28] MEDS: INSULIN LISPRO (AdmeLOG) 1 UNIT/0.01 ML UNIT SC (22:29)
[2024-10-29] VITALS (14 sets, daily range): BP systolic 139–176; BP diastolic 76–92; PULSE 47–80; RESP 15–97; TEMP 36.3–36.6; O2SAT 96–98; BMI 26.4
[2024-10-29 00:59] LABS: Partial Thromboplastin Time 49.8 Seconds (22.0-36.0)
[2024-10-29] MEDS: HEPARIN SOD INJ 5000 UNIT/ML VIAL 3550 UNIT IV (01:47)
[2024-10-29] MEDS: ACETAMINOPHEN 325 MG TABLET 650 MG PO (01:55)
[2024-10-29] MEDS: MORPHINE SULF INJ 4 MG/ML VIAL IVP ×4 (03:41→22:05)
[2024-10-29] MEDS: GABAPENTIN 300 MG CAPSULE 600 MG PO ×3 (05:12→22:06)
[2024-10-29 05:13] LABS: Basophils # (Auto) 0.1 Thou/mm3 (0.0-0.2); Basophils % (Auto) 1 % (0-2.5); Eosinophils # (Auto) 0.2 Thou/mm3 (0.0-0.5); Eosinophils % (Auto) 3 % (0-10); Hematocrit 41.5 % (41.0-53.0); Hemoglobin 14.0 g/dL (13.5-16.0); Immature Granulocytes Auto 0.05 Thou/mm3 (0.00-0.00); Lymphocytes # (Auto) 2.5 Thou/mm3 (1.0-4.8); Lymphocytes % (Auto) 36 % (10-50); Mean Corpuscular HGB Conc 33.7 g/dl (31.0-37.0); Mean Corpuscular Hemoglobin 26.6 pg (25.0-35.0); Mean Corpuscular Volume 79 fL (80-100); Monocytes # (Auto) 0.6 Thou/mm3 (0.0-0.8); Monocytes % (Auto) 9 % (0-12); Neutrophils # (Auto) 3.4 Thou/mm3 (1.8-7.7); Neutrophils % (Auto) 50 % (37-80); Nucleated Red Blood Cell # 0.00 Thou/mm3 (0.00-0.00); Nucleated Red Blood Cell % 0 /100 WBC (0); Platelet Count 184 Thou/mm3 (140-440); RDW Standard Deviation 36.5 fL (35.1-43.9); Red Blood Count 5.27 Miln/mm3 (4.50-5.90); White Blood Count 6.8 Thou/mm3 (3.8-10.6)
[2024-10-29] MEDS: LOSARTAN POTASSIUM 25 MG TABLET 50 MG PO (05:33)
[2024-10-29 05:41] LABS: Alanine Aminotransferase 15 U/L (10-49); Albumin, Serum 3.7 gm/dL (3.5-5.0); Albumin/Globulin Ratio 1.4 (1.2-2.2); Alkaline Phosphatase 107 U/L (46-116); Anion Gap 10 (7-16); Aspartate Amino Transferase 18 U/L (0-34); BUN/Creatinine Ratio 10 Ratio (12-20); Bilirubin,Total 0.4 mg/dL (0.3-1.2); Blood Urea Nitrogen 11 mg/dL (9-23); Calcium 9.7 mg/dL (8.3-10.6); Calcium (Corrected) 9.9 mg/dL (8.5-10.1); Carbon Dioxide 25.1 mMol/L (20.0-31.0); Cardiac Risk Estimate 3.4 RATIO (4.0-6.7); Chloride 101 mMol/L (98-107); Cholesterol 219 mg/dL (132-200); Creatinine (Component) 1.1 mg/dL (0.6-1.3); Estimated Creatinine Clearance 81.2 mL/min (>60); Globulin 2.7 gm/dL (2.3-3.5); Glucose 309 mg/dL (74-106); HDL Cholesterol 64 mg/dL (40-60); LDL Cholesterol,Calculated 135 mg/dL (0-130); Magnesium 1.9 mg/dL (1.6-2.6); Osmolality,Calculated 283 (275-295); Phosphorous 3.4 mg/dL (2.4-5.1); Potassium 3.9 mMol/L (3.4-5.1); Sodium 136 mMol/L (136-145); Thyroid Stimulating Hormone 1.53 uIU/mL (0.55-4.78); Total Protein 6.4 gm/dL (5.7-8.2); Triglycerides 102 mg/dL (30-150); eGFR > 60 See Note
[2024-10-29 06:40] LABS: Misc Send Out* See Sep Rpt
[2024-10-29 07:26] LABS: Partial Thromboplastin Time 75.7 Seconds (22.0-36.0)
[2024-10-29] MEDS: INSULIN LISPRO (AdmeLOG) 1 UNIT/0.01 ML UNIT SC ×4 (07:34→21:13)
[2024-10-29] MEDS: LOSARTAN POTASSIUM 25 MG TABLET 100 MG PO (09:19)
[2024-10-29] MEDS: PHENYTOIN 50 MG 100 MG PO ×2 (09:19→20:46)
[2024-10-29] MEDS: Heparin/D5w 25K 250 ML Ivpb 25,000 UNIT/250 ML BAG 17.815 UNIT IV (09:23)
--- NOTE | 2024-10-29 09:27 | PC.SS ---
Follow up note: On IV Heprin drip. Pt is possible d/c home.
[2024-10-29 11:50] LABS: Partial Thromboplastin Time 53.1 Seconds (22.0-36.0)
--- NOTE | 2024-10-29 11:54 | ESPR_ITS ---
<Statement entered by Derian Russo MD - 10/30/24 14:52> No acute overnight events. Received a dose of morphine in view of chest pain. Vitals are stable noted to have elevated blood sugars. Started on insulin degludec. Started his home medications. Heparin drip and transition to Eliquis 10 mg twice daily. Pending echo I have personally seen and examined the patient, agree with residents assessment and plan Patient plan of care was discussed with the attending physician, Dr. Chitra Russo, PGY2 Documentation for date of: 10/29/24 Subjective Subjective Interval history: No acute events overnight. Reported trouble sleeping, restarted home dose hydroxyzine and tizanidine 2 mg nightly. Continues to endorse left sided chest pain, unchanged from yesterday. Patient saturating well on room air. Patient was hypertensive 150/88 this morning, improved after administering losartan 100 mg which is one of patient's home medications. Will restart home dose hydrochlorothiazide if BP continues to be elevated. Blood glucose 337, takes metformin at home, previously required insulin then transition to Ozempic but discontinued due to GI side effects. Will start degludec 8 units nightly and sliding scale. Will start on atorvastatin 40mg nightly as lipid panel shows elevated cholesterol levels, LDL 135. In regards to pulmonary embolism, will transition to Eliquis 10 mg twice daily from heparin drip. Doppler lower extremities negative for DVTs. Pending echo. Anticipate discharge home once echo completed. Exam Vital Signs Temp Pulse Resp BP Pulse Ox O2 Del Method 97.4 F 62 20 166/85 H 97 Room Air 10/29/24 08:00 10/29/24 09:19 10/29/24 08:00 10/29/24 09:19 10/29/24 08:00 10/29/24 08:00 Narrative Exam Physical Exam General: Awake and in no acute distress. Conversational and non-toxic appearing. HEENT: Normocephalic, atraumatic, mucous membranes moist. Heart: Regular rate and rhythm, normal S1 and S2, no murmurs. Lungs: Clear to auscultation with no wheezing or crackles. Abdomen: Soft, nondistended, nontender, positive bowel sounds. No guarding or rebound tenderness. Neurologic: Alert and oriented x3, no gross neurological deficit, and patient able to move all 4 extremities. Extremities: No edema. Skin: No rash or ecchymoses. Objective Labs 10/29/24 04:44 10/29/24 04:44 Labs: Laboratory Results - last 24 hr 10/28/24 10/28/24 10/28/24 13:00 14:36 17:40 WBC 8.4 RBC 5.23 Hgb 14.4 Hct 40.5 L MCV 77 L MCH 27.5 MCHC 35.6 RDW Std Deviation 35.4 Plt Count 221 Neut % (Auto) 62 Lymph % (Auto) 28 Stone % (Auto) 8 Eos % (Auto) 2 Baso % (Auto) 1 Neut # (Auto) 5.2 Lymph # (Auto) 2.4 Stone # (Auto) 0.7 Eos # (Auto) 0.1 Baso # (Auto) 0.1 Immature Gran # (Auto) 0.05 H Absolute Nucleated RBC 0.00 Immature Gran % 1 H Nucleated RBC % 0 APTT 22.9 Sodium 132 L Potassium 4.3 Chloride 98 Carbon Dioxide 25.6 Anion Gap 8 BUN 16 Creatinine 1.3 Estim Creat Clear Calc Not Performed. eGFR > 60 BUN/Creatinine Ratio [address] Glu mg/dL Hemoglobin A1c Calculated Osmolality 281 Calcium 10.1 Corrected Calcium 10.1 Phosphorus Magnesium 1.8 Total Bilirubin 0.6 AST 22 ALT 22 Alkaline Phosphatase 126 H Troponin I < 0.020 < 0.020 B-Natriuretic Peptide 55 Total Protein 7.4 Albumin 4.4 Globulin 3.0 Albumin/Globulin Ratio 1.5 Triglycerides Cholesterol LDL Cholesterol, Calc HDL Cholesterol Cholesterol/HDL Ratio TSH 10/29/24 10/29/24 10/29/24 00:23 04:44 11:01 WBC 6.8 RBC 5.27 Hgb 14.0 Hct 41.5 MCV 79 L MCH 26.6 MCHC 33.7 RDW Std Deviation 36.5 Plt Count 184 D Neut % (Auto) 50 Lymph % (Auto) 36 Stone % (Auto) 9 Eos % (Auto) 3 Baso % (Auto) 1 Neut # (Auto) 3.4 Lymph # (Auto) 2.5 Stone # (Auto) 0.6 Eos # (Auto) 0.2 Baso # (Auto) 0.1 Immature Gran # (Auto) 0.05 H Absolute Nucleated RBC 0.00 Immature Gran % 1 H Nucleated RBC % 0 APTT 49.8 H D 75.7 H D 53.1 H D Sodium 136 Potassium 3.9 Chloride 101 Carbon Dioxide 25.1 Anion Gap 10 BUN 11 Creatinine 1.1 Estim Creat Clear Calc 81.2 eGFR > 60 BUN/Creatinine Ratio 10 L Glucose [address] Glu mg/dL Cancelled Hemoglobin A1c Cancelled Calculated Osmolality 283 Calcium 9.7 Corrected Calcium 9.9 Phosphorus 3.4 Magnesium 1.9 Total Bilirubin 0.4 AST 18 ALT 15 Alkaline Phosphatase 107 Troponin I B-Natriuretic Peptide Total Protein 6.4 Albumin 3.7 D Globulin 2.7 Albumin/Globulin Ratio 1.4 Triglycerides 102 Cholesterol 219 H LDL Cholesterol, Calc 135 H HDL Cholesterol 64 H Cholesterol/HDL Ratio 3.4 L TSH 1.53 Quality Measures Quality Measures none Assessment & Plan Assessment Current Active Medications: Generic Name Dose Route Start Last Admin Trade Name Freq PRN Reason Stop Dose Admin Acetaminophen 650 mg 10/28/24 17:13 10/29/24 01:55 Acetaminophen 325 Mg Tablet PO 11/27/24 17:12 650 mg Q6H PRN Administration Fever >100.3 Albuterol/Ipratropium 3 ml 10/28/24 17:13 Albuterol/Ipratropium (Duoneb) Rt Guillermina 3 Ml Nebu INH 11/27/24 17:12 Q4HR PRN SHORTNESS OF BREATH OR WHEEZE Atorvastatin Calcium 40 mg 10/28/24 21:00 10/28/24 21:35 Atorvastatin Calcium 20 Mg Tablet PO 11/27/24 20:59 40 mg QPM ALISHA Administration Dextrose 25 ml 10/28/24 17:23 Dextrose 50%-Water Inj 50 Ml Syringe IV 11/27/24 17:22 Q15MIN PRN BG 50-70 responsive npo pt Dextrose 50 ml 10/28/24 17:23 Dextrose 50%-Water Inj 50 Ml Syringe IV 11/27/24 17:22 Q15MIN PRN BG <50 OR BG <70 & pt unresponsive Gabapentin 600 mg 10/28/24 22:00 10/29/24 05:12 Gabapentin 300 Mg Capsule PO 11/27/24 21:59 600 mg TID ALISHA Administration Glucagon 1 mg 10/28/24 17:23 Glucagon Inj 1 Mg Vial IM Q15MIN PRN BG <70, and no IV access Hydroxyzine HCl 50 mg 10/29/24 21:00 Hydroxyzine Hcl 25 Mg Tablet PO 11/28/24 20:59 HS ALISHA Heparin Sodium/Dextrose 25,000 unit in 250 mls @ 16.033 mls/hr 10/28/24 18:00 10/29/24 09:23 Heparin In D5w Ivpb IV 11/11/24 17:59 20 units/kg/hr .[id number] ALISHA 17.815 mls/hr Protocol Administration 18 UNITS/KG/HR Insulin Human Lispro 0 unit 10/28/24 22:00 10/29/24 11:52 Insulin Lispro (Admelog) 1 Unit/0.01 Ml Unit SC 11/27/24 21:59 4 unit ACHS ALISHA Administration Protocol Losartan Potassium 100 mg 10/29/24 09:00 10/29/24 09:19 Losartan Potassium 25 Mg Tablet PO 11/28/24 08:59 100 mg QDAY ALISHA Administration Morphine Sulfate 4 mg 10/28/24 20:55 10/29/24 09:48 Morphine Sulf Inj 4 Mg/Ml Vial IVP 11/02/24 20:22 4 mg Q6H PRN Administration PAIN SCALE 7-10 (Severe Ondansetron HCl 4 mg 10/28/24 17:13 Ondansetron Inj 2 Mg/Ml Inj 2 Ml IVP 11/27/24 17:12 Q6H PRN NAUSEA OR VOMITING Protocol Pantoprazole Sodium 40 mg 10/29/24 09:00 10/29/24 09:18 Pantoprazole Inj 40 Mg Vial IVP 11/28/24 08:59 40 mg QDAY ALISHA Administration Phenytoin 100 mg 10/28/24 21:00 10/29/24 09:19 Phenytoin 50 Mg Tab Chew PO 11/27/24 20:59 100 mg BID ALISHA Administration Sennosides 1 tab 10/28/24 17:13 Senna Tablet PO 11/27/24 17:12 QDAY PRN constipation Protocol Tizanidine HCl 2 mg 10/29/24 21:00 Tizanidine Hcl 2 Mg Tablet PO 11/28/24 20:59 HS ALISHA Plan Patient is a 59-year-old male with significant past medical history of hypertension, hyperlipidemia, seizure disorder, gout, chronic back pain, diabetes mellitus, diabetic neuropathy, panic attacks, GERD presented on 10/28 for 1 day episode of severe chest pain, admitted for pulmonary embolism. # Pulmonary embolism, right lower lobe # Angina, cardiac versus noncardiac Presented with chief complaint of 1 day history sudden onset chest pain with radiation to the left scapula, associated with diaphoresis. Had similar complaints in the past 5 years ago for which cardiac cath was done and noted to have no significant abnormality. Since then did not follow-up with any digital imaging technician and not on any antiplatelets Admission BP 189/91 mmHg, respiratory 26/min, troponin negative. EKG showed sinus rhythm with first-degree heart block without any ST T wave changes. CXR was negative. CT angio chest negative for aneurysm/dissection but noted to have small pulmonary artery emboli in the right lower lobe pulmonary artery branches. Patient is not candidate for thrombectomy at this time due to very small emboli. Venous Doppler of bilateral lower extremities negative for DVTs. Plan - Wort Extractor, Dr. Palacio was consulted, will appreciate his recommendations - S/p heparin drip (10/28 - 10/29), transition to Eliquis 10 mg twice daily - Pending echo - Oxygen as needed - Telemetry # Hypertensive urgency, resolved #Hypertension Admission BP 189/91 mmHg, improved s/p 2 doses of sublingual nitrate and morphine. Home medications include atenolol 100 mg nightly, hydrochlorothiazide 25 mg daily, losartan 100 mg daily. Plan - Low-sodium diet - Increase to losartan 100 mg daily - Start hydrochlorothiazide 25 mg daily - CTM BP # History of diabetes mellitus #Diabetic neuropathy Home medications include metformin 1000 mg twice daily. Previously required insulin, switched to Ozempic but discontinued due to GI side effects. Blood glucose elevated in 300s. Hemoglobin A1c was canceled due to out of range value. Plan - Degludec 8 units nightly - Insulin sliding scale normal - CTM blood glucose and increase insulin requirements as needed - Gabapentin 600 mg TID #HLD Previously taking atorvastatin 40 mg daily but stopped taking. Lipid panel: trig 102, total cholesterol 219, LDL 135, HDL 64. ASCVD score 18.2%, recommend high intensity statin - Start on atorvastatin 40 mg daily #Insomnia #Muscle cramps Chronic medical issues. - Restart home dose hydroxyzine 50 mg nightly - Start tizanidine 2 mg nightly, will increase to 4 mg (home dose) if no improvement Hospital Maintenance: Dispo: Tele DVT ppx: Heparin drip GI ppx: Pantoprazole Diet: Carb consistent and low sodium Code status: Full Patient plan of care was discussed with the resident, Dr. Russo, and attending physician, Dr. Buenrostro. Whitley Salomon, PGY-1 Attending Provider Attestation/Addendum I attest that I was physically present for the evaluation, physical examination, lab and imaging review of the patient with the residents. I discussed the case with the residents and agree with the findings and plans of care as documented above. Patient seen and evaluated states that his pain has improved compared to yesterday but still continues to have left-sided chest pain. Vital signs are stable except for hypertension, resumed his home losartan. Will continue to monitor closely for his blood pressure and resume more of his antihypertensives. Blood glucose was noted to be 337 this morning, started on insulin regimen. Patient was started on heparin drip for pulmonary embolism, we will transition him to oral Eliquis. Resumed his home hydroxyzine and tizanidine for muscle cramps. Awaiting echocardiography and stabilization of his blood glucose. Marlon Buenrostro MD
[2024-10-29] MEDS: INSULIN DEGLUDEC 5 UNIT/0.05 ML (PER 5 UNITS) 8 UNIT SC (13:47)
[2024-10-29] MEDS: APIXABAN 2.5 MG TABLET 10 MG PO ×2 (13:47→20:46)
--- NOTE | 2024-10-29 16:18 | PC.SS ---
SS met with patient regarding his d/c plan. Pt is alert/oriented. Pt was admitted for Pulmonary Embolism. Pt confirmed demographic and contact information is correct on facesheet. Pt resides alone. Pt ambulates independently without assistance or DME. Pt is ok with all ADLs. 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 Patient?[facility] [address]. Pt named his sister in law, Lior Stanton, phone# [phone] medical decision maker if he is unable. Patient?s choice is to return home upon d/c. Pt states not diabetic and is not on dialysis. Patient's brother, Roman will provide transportation. D/C plan: Return home Next of Kin: Lior Stanton or Roman Stanton, brother, phone# [phone] PCP: Suad Alvarado from [facility] Address: Correct on facesheet
[2024-10-29 17:33] LABS: Partial Thromboplastin Time 27.4 Seconds (22.0-36.0)
[2024-10-29] MEDS: ATORVASTATIN CALCIUM 20 MG TABLET 40 MG PO (20:46)
[2024-10-29] MEDS: INSULIN DEGLUDEC 5 UNIT/0.05 ML (PER 5 UNITS) 10 UNIT SC (21:13)
[2024-10-30] VITALS (7 sets, daily range): BP systolic 122–166; BP diastolic 71–89; PULSE 51–107; RESP 16–96; TEMP 36.3–36.6; O2SAT 92–98; BMI 26.4
[2024-10-30] MEDS: MORPHINE SULF INJ 4 MG/ML VIAL IVP (05:01)
[2024-10-30] MEDS: GABAPENTIN 300 MG CAPSULE 600 MG PO (05:01)
[2024-10-30 05:20] LABS: Basophils # (Auto) 0.1 Thou/mm3 (0.0-0.2); Basophils % (Auto) 1 % (0-2.5); Eosinophils # (Auto) 0.2 Thou/mm3 (0.0-0.5); Eosinophils % (Auto) 3 % (0-10); Hematocrit 40.4 % (41.0-53.0); Hemoglobin 13.7 g/dL (13.5-16.0); Immature Granulocytes Auto 0.05 Thou/mm3 (0.00-0.00); Lymphocytes # (Auto) 2.4 Thou/mm3 (1.0-4.8); Lymphocytes % (Auto) 37 % (10-50); Mean Corpuscular HGB Conc 33.9 g/dl (31.0-37.0); Mean Corpuscular Hemoglobin 26.9 pg (25.0-35.0); Mean Corpuscular Volume 79 fL (80-100); Monocytes # (Auto) 0.8 Thou/mm3 (0.0-0.8); Monocytes % (Auto) 12 % (0-12); Neutrophils # (Auto) 3.1 Thou/mm3 (1.8-7.7); Neutrophils % (Auto) 47 % (37-80); Nucleated Red Blood Cell # 0.00 Thou/mm3 (0.00-0.00); Nucleated Red Blood Cell % 0 /100 WBC (0); Platelet Count 179 Thou/mm3 (140-440); RDW Standard Deviation 36.9 fL (35.1-43.9); Red Blood Count 5.10 Miln/mm3 (4.50-5.90); White Blood Count 6.5 Thou/mm3 (3.8-10.6)
[2024-10-30 05:35] LABS: INR 1.0 (0.9-1.3); Partial Thromboplastin Time 25.5 Seconds (22.0-36.0); Prothrombin Time 11.3 Seconds (9.0-12.2)
[2024-10-30 05:43] LABS: Alanine Aminotransferase 14 U/L (10-49); Albumin, Serum 3.7 gm/dL (3.5-5.0); Albumin/Globulin Ratio 1.3 (1.2-2.2); Alkaline Phosphatase 100 U/L (46-116); Anion Gap 8 (7-16); Aspartate Amino Transferase 16 U/L (0-34); BUN/Creatinine Ratio 14 Ratio (12-20); Bilirubin,Total 0.3 mg/dL (0.3-1.2); Blood Urea Nitrogen 15 mg/dL (9-23); Calcium 9.6 mg/dL (8.3-10.6); Calcium (Corrected) 9.8 mg/dL (8.5-10.1); Carbon Dioxide 29.0 mMol/L (20.0-31.0); Chloride 100 mMol/L (98-107); Creatinine (Component) 1.1 mg/dL (0.6-1.3); Estimated Creatinine Clearance 74.7 mL/min (>60); Globulin 2.9 gm/dL (2.3-3.5); Glucose 297 mg/dL (74-106); Osmolality,Calculated 285 (275-295); Potassium 4.3 mMol/L (3.4-5.1); Sodium 137 mMol/L (136-145); Total Protein 6.6 gm/dL (5.7-8.2); eGFR > 60 See Note
[2024-10-30] MEDS: INSULIN DEGLUDEC 5 UNIT/0.05 ML (PER 5 UNITS) 6 UNIT SC (07:45)
[2024-10-30] MEDS: INSULIN LISPRO (AdmeLOG) 1 UNIT/0.01 ML UNIT SC ×2 (07:46→11:57)
[2024-10-30] MEDS: LOSARTAN POTASSIUM 25 MG TABLET 100 MG PO (08:56)
[2024-10-30] MEDS: APIXABAN 2.5 MG TABLET 10 MG PO (09:00)
[2024-10-30] MEDS: PANTOPRAZOLE 40 MG TABLET PO (09:01)
[2024-10-30] MEDS: PHENYTOIN 50 MG 100 MG PO (09:05)
--- NOTE | 2024-10-30 09:28 | ESDS_ITS ---
<Statement entered by Derian Russo MD - 10/30/24 14:50> I have personally seen and examined the patient, agree with residents assessment and plan Patient plan of care was discussed with the attending physician, Dr. Colby Russo, PGY2 Planned Discharge Date 10/30/24 DS: Providers Provider Date of admission: 10/28/24 17:41 Primary care physician: Physician No Primary/Family Admitting Provider: Marlon Buenrostro MD Attending Provider on Admission: Arnulfo Bowman MD Attending Provider on DC: Arnulfo Bowman MD Discharging Provider: Whitley Salomon, DS: Diagnosis Problem List Completed Was Problem List Reviewed/Reconciled?: Yes Hospital Course Hospital Course Hospital course: Summary: Patient is a 59-year-old male with significant past medical history of hypertension, hyperlipidemia, seizures, gout, chronic back pain, diabetes mellitus w/ neuropathy, panic attacks, GERD presented on 10/28 for 1 day episode of chest pain, admitted for right lower lobe pulmonary embolism found on CT angio chest. Patient was not candidate for thrombectomy with very small distal emboli. Electronic Prep[employer] System Operator Dr. Palacio was consulted, started on heparin drip and later transitioned to Eliquis 10 mg twice daily. Venous doppler of bilateral lower extremities were negative for DVTs. Patient has been experiencing stable angina with exertion intermittently for the past 5 years, for which he underwent cardiac cath with sea air land officer Dr. [place] in [place]. Echo was taken, will need to follow up with read. Recommended to continue taking home dose atenolol 100 mg daily and follow up with sea air land officer for further outpatient cardiac workup. During admission, blood pressure was mostly controlled on losartan 100 mg and hydrochlorothiazide 25mg daily, will switch the latter to nifedipine 60 mg daily for more optimal control as HCTZ can also increase blood sugar. Blood glucose is controlled on 18 units degludec and sliding scale with meals. Hemoglobin A1c was unquantifiable (likely greater than 14), uncontrolled on just metformin 1000 BID at home. Received diabetic education during admission. Patient was also restarted on atorvastatin 40 mg daily due to uncontrolled hyperlipidemia. Cont inued all other home medications. Patient was medically stable upon discharge. ED Course: - Vitals: BP 189/91 mmHg, respiratory 26/min - Labs: sodium 132, creatinine 1.3, glucose 383, troponin is negative - EKG: normal sinus rhythm with first-degree heart block without any ST T wave changes - Chest x-ray done at the time of admission did not show any infiltrates - CT angio chest negative for aneurysm/dissection but noted to have small pulmonary artery emboli in the right lower lobe pulmonary artery branches. - Patient is admitted in the hospital in view of pulmonary embolism Discharge Recommendations: Please take Eliquis 10mg by mouth twice a day for pulmonary embolism for 6 additional days - then only take 5mg by mouth twice a day Please use 16 units of insulin degludec at night; check your blood sugar as directed Stop taking valsartan 160mg, Hydrochlorthiazide 25mg and instead continue taking losartan 100mg by mouth daily and Nifedipine 60mg once daily for high blood pressure Continue all other home medications Please follow-up with your PCP within 1 week of discharge - or follow-up at the [facility] [address] [place] [address] Ask your PCP for workup for unprovoked PE; coagulopathy workup and possible need for PET scan, cancer screening If your symptoms worsen or if you develop new chest pain, shortness of breath, bleeding or dizziness - please come back to the ED immediately. Hospital Diagnoses: #Pulmonary embolism, right lower lobe #Hx of stable angina, exertional #Hypertensive urgency, resolved #Hypertension #History of diabetes mellitus w/ neuropathy #HLD #Insomnia #Muscle cramps Disposition: Safe discharge to home. Patient plan of care was discussed with the resident, Dr. Russo, and attending physician, Dr. Bowman. Whitley Salomon, PGY-1 Time Spent with Patient Time attestation: Total time spent providing and/or coordinating discharge services: Time spent: Greater than 30 minutes Exam Vital Signs Temp Pulse Resp BP Pulse Ox O2 Del Method 97.5 F 71 20 166/89 H 92 L Room Air 10/30/24 08:00 10/30/24 09:00 10/30/24 08:00 10/30/24 09:00 10/30/24 08:00 10/30/24 08:00 Narrative Exam Physical Exam General: Awake and in no acute distress. Conversational and non-toxic appearing. HEENT: Normocephalic, atraumatic, mucous membranes moist. Heart: Regular rate and rhythm, normal S1 and S2, no murmurs. Lungs: Clear to auscultation with no wheezing or crackles. Abdomen: Soft, nondistended, nontender, positive bowel sounds. No guarding or rebound tenderness. Neurologic: Alert and oriented x3, no gross neurological deficit, and patient able to move all 4 extremities. Extremities: No edema. Skin: No rash or ecchymoses. Discharge Plan Plan Patient Disposition: HOME (Self Care) Patient condition on transfer: Stable Care Plan Goals: Please take Eliquis 10mg by mouth twice a day for pulmonary embolism for 6 additional days - then only take 5mg by mouth twice a day Please use 16 units of insulin degludec at night; check your blood sugar as directed Stop taking valsartan 160mg, Hydrochlorthiazide 25mg and instead continue taking losartan 100mg by mouth daily and Nifedipine 60mg once daily for high blood pressure Continue all other home medications Please follow-up with your PCP within 1 week of discharge - or follow-up at the [facility] [place] [address] Ask your PCP for workup for unprovoked PE; coagulopathy workup and possible need for PET scan, cancer screening If your symptoms worsen or if you develop new chest pain, shortness of breath, bleeding or dizziness - please come back to the ED immediately. Prescriptions/Referrals Prescriptions/Med Rec: New (DME) blood-glucose meter Kit See Rx Instructions .Route Qty: 1 0RF Rx Instructions: As directed (DME) Blood Glucose Test Strip See Rx Instructions .Route Qty: 50 0RF Rx Instructions: To use blood glucose test strips, insert a new strip into your meter, wash and dry your hands, and then prick the side of your finger with a lancing device. Apply the drop of blood to the test strip's edge and wait for the meter to display your blood glucose result. After recording the result, safely dispose of the used lancet and test strip in a sharps container. (DME) lancets [facility] See Rx Instructions .Route Qty: 100 0RF Rx Instructions: Twist and pull the long piece of safety plastic off the end of the lancet. Then, place the lancet between your index and middle finger (like holding a syringe). Place and hold onto the finger you wish to draw blood from and press down on the large yellow button until you hear a click. (DME) FreeStyle Rahat 3 Plus Sensor Device See Rx Instructions .Route Qty: 2 0RF Rx Instructions: As directed (DME) FreeStyle Rahat 3 [place] Misc See Rx Instructions .Route Qty: 1 0RF Rx Instructions: As directed Eliquis 5 mg tablet 10 mg PO BID 6 Days Qty: 24 0RF Eliquis 5 mg tablet 5 mg PO BID 30 Days Qty: 60 0RF Rx Instructions: Start the medication on 11/05/2024 (once the Eliquis 10mg PO BID regimen is completed) insulin degludec 100 unit/mL (3 mL) insulin pen 16 unit subcut QDAY Qty: 15 0RF (DME) pen needle, diabetic [Pen Needle] 29 gauge x 1/2 needle See Rx Instructions .Route Qty: 100 0RF Rx Instructions: As directed nifedipine 60 mg tablet extended release 60 mg PO QDAY 30 Days Qty: 30 0RF Continued metformin [Glucophage] 1,000 MG tablet 1,000 mg PO BID Qty: 0 loratadine [Claritin] 10 MG tablet 10 mg PO QDAY Qty: 0 gabapentin 600 MG tablet 600 mg PO TID Qty: 0 omeprazole 40 MG capsule,delayed release(DR/EC) 40 mg PO QDAY Qty: 0 losartan 100 mg Tablet 100 mg PO QDAY Qty: 0 nabumetone 500 mg Tablet 500 mg PO BID fluoxetine 20 mg Capsule 20 mg PO DAILY hydroxyzine HCl 50 mg tablet 50 mg PO HS Patient Comments: TAKE 1 TABLET BY MOUTH THREE TIMES A DAY atenolol 100 mg tablet 100 mg PO HS Patient Comments: TAKE 1 TABLET BY MOUTH EVERY DAY fenofibrate 160 mg tablet 160 mg PO .everyday Patient Comments: TAKE 1 TABLET BY MOUTH EVERY DAY tizanidine 4 mg tablet 4 mg PO HS Patient Comments: TAKE 1 TABLET EVERY 8 HOURS BY MOUTH NEEDED FOR 30 DAYS, FOR MUSCLE SPASMS. allopurinol 100 mg tablet 100 mg PO .everyday Patient Comments: TAKE 1 TABLET BY MOUTH EVERY DAY phenytoin sodium extended 100 mg capsule 100 mg PO .everyday pravastatin 80 mg tablet 80 mg PO .everyday Patient Comments: TAKE 1 TABLET BY MOUTH EVERY DAY trazodone 100 mg tablet 100 mg PO HS Patient Comments: TAKE 1 TABLET BY MOUTH AT NIGHT Discontinued atorvastatin 40 mg Tablet 40 mg PO QPM Qty: 0 Patient Comments: per patient MD stopped hydrochlorothiazide 25 MG tablet 25 mg PO QAM Qty: 0 valsartan 160 mg tablet 160 mg PO .Am Patient Comments: TAKE 1 TABLET BY MOUTH EVERY DAY Referrals: No Primary/Family,Physician [Primary Care Provider] Patient/Caregiver Discharge Instructions Education Materials: Pulmonary Embolism, Insulin How to Use and Where to Inject, Embolism Pulmonary Dc, How Diabetes Can Affect ... Print Language: Japanese Stand Alone Forms: [employer] Award Info., Patient Portal Info Letter Discharge Order Discharge Orders: Discharge (Routine); Ordered 10/30/24 Ordered By: Mitch Hope Quality Discharge Quality Measures VTE prophylaxis Attestestation MD Attestation I have examined the patient, reviewed labs and imaging findings, discussed the case with the resident(s), and reviewed entered orders. I agree with the plan of care as outlined in this note. Time Spent: [address] Colby MD
--- NOTE | 2024-11-02 09:20 | PC.CC ---
PA for Freestyle Rahat 3 Plus sensors and Swatchcloud Rahat 3 Groom approved through 11/02/25. Updated [facility] [place] who confirmed insurance paid on both prescriptions.
== END 2024-10-30 12:40 | disposition home or self-care (01) | DRG 134 ==
LOC: SERX 17:18 → SERHOLD 17:44 → S2NX 18:31
PROVIDERS: Admitting Provider Student in an Organized Health Care Education/Training Program; Emergency Provider Emergency Medicine; Visit Provider Student in an Organized Health Care Education/Training Program
DX: I26.99 Other pulmonary embolism without acute cor pulmonale (principal); I10 Essential (primary) hypertension; M10.9 Gout, unspecified; E11.40 Type 2 diabetes mellitus with diabetic neuropathy, unspecified; M54.9 Dorsalgia, unspecified; G89.29 Other chronic pain; K21.9 Gastro-esophageal reflux disease without esophagitis; J44.9 Chronic obstructive pulmonary disease, unspecified; E78.00 Pure hypercholesterolemia, unspecified; I20.9 Angina pectoris, unspecified; G40.909 Epilepsy, unspecified, not intractable, without status epilepticus; I16.0 Hypertensive urgency; I44.0 Atrioventricular block, first degree; G47.00 Insomnia, unspecified; R25.2 Cramp and spasm; Z79.84 Long term (current) use of oral hypoglycemic drugs; Z79.899 Other long term (current) drug therapy; Z79.4 Long term (current) use of insulin; Z88.8 Allergy status to other drugs, medicaments and biological substances
CPT/HCPCS: 36415; 71045; 71275; 80053; 80061; 83036; 83735; 83880; 84100; 84443; 84484; 85025; 85610; 85730; 93005; 93306; 93970; 96374; 99284; A4649; J1644; J1815; J2270; J2470; Q9967; A9270

== ENCOUNTER 2025-01-06 13:46 | Emergency (ER) | payer MEDICAID, SELFPAY ==
[2025-01-06 14:14] VITALS: BP 138/85; PULSE 96; RESP 18; TEMP 37.1; O2SAT 96; BMI 27.1
--- NOTE | 2025-01-06 14:16 | EDNOTE_ITS ---
Upper Extremity Injury RME/HPI General Chief Complaint: Hand/Wrist Problems Stated Complaint: SWELLING (INJURY?) L) HAND, VERY PAINFUL (8/10) Time Seen by Provider: 01/06/25 14:08 Arrival date/time: 01/06/25 13:46 This is a 59-year-old male that comes into the emergency room with complaints of left hand pain. Patient states that started this morning. Patient states he woke up with the pain. Patient has multiple little abrasions around hand. Has mild swelling to his hand. Related Data Home Medications ?Medication ?Instructions ?Recorded ?Confirmed loratadine 10 mg tablet (Claritin) 10 mg PO QDAY #0 ta bs 10/25/15 10/28/24 metformin 1,000 mg tablet 1,000 mg PO BID #0 tabs 10/1510/28/24 (Glucophage) gabapentin 600 mg tablet 600 mg PO TID #0 tabs 10/28/24 losartan 100 mg tablet 100 mg PO QDAY #0 tabs 06/0810/28/24 omeprazole 40 mg capsule,delayed 40 mg PO QDAY ##0 10/28/24 release nabumetone 500 mg tablet 500 mg PO BID 01/16/1810/28 fluoxetine 20 mg capsule 20 mg PO DAILY 06/08/1810/15 allopurinol 100 mg tablet 100 mg PO .everyday 10/28/24 10/28/24 atenolol 100 mg tablet 100 mg PO HS 10/28/24 fenofibrate 160 mg tablet 160 mg PO .everyday 10/28/24 10/28/24 hydroxyzine HCl 50 mg tablet 50 mg PO HS 10/28/2410/15 phenytoin sodium extended 100 mg 100 mg PO .everyday 0 10/28/24 10/28/24 capsule pravastatin 80 mg tablet 80 mg PO .everyday 10/28/24 10/28/24 tizanidine 4 mg tablet 4 mg PO HS 10/28/24 10/28/24 trazodone 100 mg tablet 100 mg PO HS 10/28/24 Previous Rx's ?Medication ?Instructions ?Recorded blood sugar diagnostic (Blood #50 ea 10/30/24 Glucose Test strips) blood-glucose meter #1 ea 10/30/24 blood-glucose sensor (FreeStyle #2 10/30/24 Rahat 3 Plus Sensor device) blood-glucose,watch and clock maker and repairer,cont #1 10/30/24 (FreeStyle Rahat 3 [place]) insulin degludec 100 unit/mL (3 16 unit (0.16 mL) subc ut QDAY #15 10/30/24 mL) subcutaneous pen mL lancets #100 10/30/24 pen needle, diabetic 29 gauge x #100 10/30/2402/15 (Pen Needle) doxycycline hyclate 100 mg tablet 100 mg PO BID #14 ta bs 01/06/25 ibuprofen 800 mg tablet 800 mg PO Q6H PRN pain #14 t abs 01/06/25 Allergies Allergy/AdvReac Type Severity Reaction Status Date / Time empagliflozin Allergy Severe PANCREATITIS Verified 01/06/25 13:49 ATTACK Course Vital Signs Vital signs: Vital Signs Temperature 98.8 F 01/06/25 14:14 Pulse Rate 96 01/06/25 14:14 Respiratory Rate 18 01/06/25 14:14 Blood Pressure 138/85 H 01/06/25 14:14 Pulse Oximetry (%) 96 01/06/25 14:14 Oxygen Delivery Method Room Air 01/06/25 14:14 Discharge Plan Plan Patient Disposition: HOME (Self Care) Patient condition on transfer: Stable Prescriptions/Referrals Prescriptions/Med Rec: New doxycycline hyclate 100 mg tablet 100 mg PO BID Qty: 14 0RF ibuprofen 800 mg tablet 800 mg PO Q6H PRN (Reason: pain) Qty: 14 0RF No Action metformin [Glucophage] 1,000 MG tablet 1,000 mg PO BID Qty: 0 loratadine [Claritin] 10 MG tablet 10 mg PO QDAY Qty: 0 gabapentin 600 MG tablet 600 mg PO TID Qty: 0 omeprazole 40 MG capsule,delayed release(DR/EC) 40 mg PO QDAY Qty: 0 losartan 100 mg Tablet 100 mg PO QDAY Qty: 0 nabumetone 500 mg Tablet 500 mg PO BID fluoxetine 20 mg Capsule 20 mg PO DAILY hydroxyzine HCl 50 mg tablet 50 mg PO HS Patient Comments: TAKE 1 TABLET BY MOUTH THREE TIMES A DAY atenolol 100 mg tablet 100 mg PO HS Patient Comments: TAKE 1 TABLET BY MOUTH EVERY DAY fenofibrate 160 mg tablet 160 mg PO .everyday Patient Comments: TAKE 1 TABLET BY MOUTH EVERY DAY tizanidine 4 mg tablet 4 mg PO HS Patient Comments: TAKE 1 TABLET EVERY 8 HOURS BY MOUTH NEEDED FOR 30 DAYS, FOR MUSCLE SPASMS. allopurinol 100 mg tablet 100 mg PO .everyday Patient Comments: TAKE 1 TABLET BY MOUTH EVERY DAY phenytoin sodium extended 100 mg capsule 100 mg PO .everyday pravastatin 80 mg tablet 80 mg PO .everyday Patient Comments: TAKE 1 TABLET BY MOUTH EVERY DAY trazodone 100 mg tablet 100 mg PO HS Patient Comments: TAKE 1 TABLET BY MOUTH AT NIGHT (DME) blood-glucose meter Kit See Rx Instructions .Route Qty: 1 0RF Rx Instructions: [place] [place] Blood Glucose Test Strip See Rx Instructions .Route Qty: 50 0RF Rx Instructions: To use blood glucose test strips, insert a new strip into your meter, wash and dry your hands, and then prick the side of your finger with a lancing device. Apply the drop of blood to the test strip's edge and wait for the meter to display your blood glucose result. After recording the result, safely dispose of the used lancet and test strip in a sharps container. [place] lancets [facility] [place] See Rx Instructions .Route Qty: 100 0RF Rx Instructions: Twist and pull the long piece of safety plastic off the end of the lancet. Then, place the lancet between your index and middle finger (like holding a syringe). Place and hold onto the finger you wish to draw blood from and press down on the large yellow button until you hear a click. (DME) FreeStyle Rahat 3 Plus Sensor Device See Rx Instructions .Route Qty: 2 0RF Rx Instructions: As directed [place] [place] [facility] Rahat [facility] [place] [facility] See Rx Instructions .Route Qty: 1 0RF Rx Instructions: As directed insulin degludec 100 unit/mL (3 mL) insulin pen 16 unit subcut QDAY Qty: 15 0RF (DME) pen needle, diabetic [Pen Needle] 29 gauge x 1/2 needle See Rx Instructions .Route Qty: 100 0RF Rx Instructions: As directed Problem List Clinical Impression: Cellulitis, Hand swelling Patient/Caregiver Discharge Instructions Discharge Activity: activity as tolerated Education Materials: ED Cellulitis Additional Instructions: Follow up with primary provider in 1-2 days. Come back to ED if symptoms change or worsen Print Language: Bermudian Stand Alone Forms: [employer] Award Info., Patient Portal Info Letter PA/CUSTOMER ADVOCATE Supervising Physician PA/CUSTOMER ADVOCATE Supervising Physician: sal
[2025-01-06] MEDS: IBUPROFEN TAB 400 MG TABLET 800 MG PO (15:07)
[2025-01-06] MEDS: DOXYCYCLINE 100 MG TABLET PO (15:07)
== END 2025-01-06 15:10 | disposition home or self-care (01) ==
PROVIDERS: Emergency Provider Emergency Medicine
DX: L03.114 Cellulitis of left upper limb (principal)
CPT/HCPCS: 99281; A9270

== ENCOUNTER 2025-01-20 13:11 | Emergency (ER) | payer MEDICAID, SELFPAY ==
[2025-01-20 13:19] VITALS: BP 162/80; PULSE 70; RESP 20; TEMP 36.8; O2SAT 98; BMI 27.1
--- NOTE | 2025-01-20 13:23 | EKG_ITS ---
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
--- NOTE | 2025-01-20 13:23 | XR_ITS ---
EXAMINATION: PA chest single view TECHNIQUE: Upright PA chest single view Date and time: January 20, 2025, 1323 hours, comparison 10/28/2024 INDICATIONS: Chest pain today. FINDINGS: No significant cardiac enlargement. No mediastinal lymphadenopathy. Lungs are clear. Intact osseous structures IMPRESSION: No active disease
--- NOTE | 2025-01-20 13:23 | XR_ITS ---
Examination: CTA chest with intravenous contrast 2-D reconstructions 3-D reconstructions, vascular Date and time of exam: January 20, 2025, 1547 hours INDICATIONS: Right-sided chest pain shortness of breath today CTDI: vol (mGy) 17 DLP: (mGycm) 389 Technique: Multiple axial sections of the thorax have been obtained. 3 mm slice thickness, from below the hemidiaphragms to above the apices of the lungs. Mediastinal and lung density settings have been obtained. 2-D sagittal and coronal reconstructions. 3-D angiographic renderings, 3-D volume renderings, 3D post processing, vascular maximum intensity projections obtained. Contrast administered is 100 cc Isovue-370. Low dose protocols were performed. One or more of the following dose reduction techniques were used; automated exposure control, adjustment of the mA and/or KV according to patient size, use of iterative reconstruction technique. Findings: No thoracic aortic aneurysmal dilatation or dissection No thoracic aortic aneurysmal dilatation or dissection Negative for pulmonary artery emboli No pneumonia or pulmonary edema or pleural disease 7 mm pulmonary nodule right upper lobe No visualized liver or splenic lesion No gallstones Normal pancreas Mild thoracic degenerative disc disease IMPRESSION: Negative for pulmonary artery emboli No pneumonia, pulmonary edema or pleural disease 7 mm pulmonary nodule right upper lobe, recommend 6-month follow-up CT chest without contrast
--- NOTE | 2025-01-20 13:26 | PD.EDCHEST ---
ED Chest Pain RME/HPI General Chief Complaint: General Adult/Misc Complain Stated Complaint: LUNGS ARE HURTING Time Seen by Provider: 01/20/25 13:13 Source: patient Arrival date/time: 01/20/25 13:11 59-year-old male with a history of hypertension, type 2 diabetes on insulin, pulmonary embolism on Eliquis, CAD, presents to the emergency room with a chief complaint of chest pain and shortness of breath x 2 hours. Mode of arrival: ambulatory Limitations: no limitations Related Data Home Medications ?Medication ?Instructions ?Recorded ?Confirmed loratadine 10 mg tablet (Claritin) 10 mg PO QDAY #0 tabs 10/25/15 10/28/24 metformin 1,000 mg tablet 1,000 mg PO BID #0 tabs 10/25/15 10/28/24 (Glucophage) gabapentin 600 mg tablet 600 mg PO TID #0 tabs 06/08/16 10/28/24 losartan 100 mg tablet 100 mg PO QDAY #0 tabs 06/08/16 10/28/24 omeprazole 40 mg capsule,delayed 40 mg PO QDAY ##0 06/08/16 10/28/24 release nabumetone 500 mg tablet 500 mg PO BID 01/16/18 10/28/24 fluoxetine 20 mg capsule 20 mg PO DAILY 06/08/18 10/28/24 allopurinol 100 mg tablet 100 mg PO .everyday 10/28/24 10/28/24 atenolol 100 mg tablet 100 mg PO HS 10/28/24 10/28/24 fenofibrate 160 mg tablet 160 mg PO .everyday 10/28/24 10/28/24 hydroxyzine HCl 50 mg tablet 50 mg PO HS 10/28/24 10/28/24 phenytoin sodium extended 100 mg 100 mg PO .everyday 10/28/24 10/28/24 capsule pravastatin 80 mg tablet 80 mg PO .everyday 10/28/24 10/28/24 tizanidine 4 mg tablet 4 mg PO HS 10/28/24 10/28/24 trazodone 100 mg tablet 100 mg PO HS 10/28/24 10/28/24 Previous Rx's ?Medication ?Instructions ?Recorded blood sugar diagnostic (Blood #50 ea 10/30/24 Glucose Test strips) blood-glucose meter #1 ea 10/30/24 blood-glucose sensor (FreeStyle #2 ea 10/30/24 Rahat 3 Plus Sensor device) blood-glucose,marine machinist,cont #1 10/30/24 (FreeStyle Rahat 3 [place]) insulin degludec 100 unit/mL (3 16 unit (0.16 mL) subcut QDAY #15 10/30/24 mL) subcutaneous pen mL lancets #100 ea 10/30/24 pen needle, diabetic 29 gauge x #100 ea 10/30/24 1/2 (Pen Needle) doxycycline hyclate 100 mg tablet 100 mg PO BID #14 tabs 01/06/25 ibuprofen 800 mg tablet 800 mg PO Q6H PRN pain #14 tabs 01/06/25 Allergies Allergy/AdvReac Type Severity Reaction Status Date / Time empagliflozin Allergy Severe PANCREATITIS Verified 01/20/25 13:14 ATTACK Review of Systems Review of Systems Systems Reviewed: All systems reviewed, normal except as documented Constitutional Constitutional: Reports system reviewed and no additional complaints, except as documented, Denies fatigue, Denies fever(s), Denies headache(s) and Denies weakness Eyes Eyes: Reports system reviewed and no additional complaints, except as documented, Denies blurry vision and Denies change in vision ENT Ears, Nose, Mouth, and Throat: Reports system reviewed and no additional complaints, except as documented, Denies otalgia, Denies headache(s), Denies nasal congestion, Denies throat swelling and Denies vertigo Cardiovascular Cardiovascular: Reports system reviewed and no additional complaints, except as documented, Reports chest pain, Reports chest pain with activity, Reports dyspnea, Denies dyspnea on exertion, Reports palpitations and Reports rapid heart rate Respiratory Respiratory: Reports system reviewed and no additional complaints, except as documented, Denies chest congestion, Denies cough, Reports dyspnea, Denies dyspnea on exertion and Denies wheezing Gastrointestinal Gastrointestinal: Reports system reviewed and no additional complaints, except as documented, Denies abdominal pain, Denies cramping, Denies nausea and Denies vomiting Genitourinary Genitourinary: Reports system reviewed and no additional complaints, except as documented, Denies dysuria and Denies hematuria Musculoskeletal Musculoskeletal: Reports system reviewed and no additional complaints, except as documented and Denies back pain Integumentary/Breasts Skin/Breast: Reports system reviewed and no additional complaints, except as documented and Denies wounds Neurologic Neurologic: Reports system reviewed and no additional complaints, except as documented, Denies confusion, Denies headache(s), Denies lack of coordination, Denies vertigo and Denies weakness Psychiatric Psychiatric: Reports system reviewed and no additional complaints, except as documented, Denies anxiety, Denies confusion, Denies depression, Denies paranoia, Denies suicidal ideation and Denies tactile hallucinations Endocrine Endocrine: Reports system reviewed and no additional complaints, except as documented, Denies fatigue and Reports palpitations Hematologic/Lymphatic Hematologic/Lymphatic: Reports system reviewed and no additional complaints, except as documented and Denies lymphadenopathy Allergic/Immunologic Allergic/Immunologic: Reports system reviewed and no additional complaints, except as documented, Denies throat swelling, Denies urticaria and Denies wheezing ED Exam General Limitations: Present no limitations General appearance: Present alert and in no apparent distress Head Head exam: Present atraumatic Eye Eye exam: Present normal appearance, PERRL and EOMI ENT ENT exam: Present normal exam, normal oropharynx and mucous membranes moist Neck Neck exam: Present normal inspection, full ROM and trachea midline Chest Chest inspection: Present normal inspection and symmetric chest wall rise Respiratory Respiratory exam: Present normal lung sounds bilaterally; Absent respiratory distress, wheezes, stridor, accessory muscle use or prolonged expiratory phase Cardiovascular Cardiovascular exam: Present regular rate, normal rhythm, normal heart sounds, +S1 and +S2; Absent bradycardia, tachycardia, irregular rhythm, systolic murmur, diastolic murmur, rubs, gallop, clicks or JVD Abdominal Exam Abdominal exam: Present soft and normal bowel sounds Extremities Exam Extremities exam: Present normal inspection and full ROM Back Exam Back exam: Present normal inspection and full ROM Neurological Exam Neurological exam: Present alert, oriented X3 and CN II-XII intact Psychiatric Psychiatric exam: Present normal affect and normal mood Skin Skin exam: Present warm, dry, intact and normal color Course Quality Measures none Orders Category Date Time Status CT Screening NOW Care 01/20/25 13:24 Active Release Of Information Clerk Q4H START 00 Care 01/20/25 15:07 Active EKG (ED ONLY) *Do not use* NOW Care 01/20/25 13:23 Completed EKG (ED ONLY) *Do not use* NOW Care 01/20/25 15:03 Completed Insert IV NOW Care 01/20/25 15:[address] angio chest Stat Exams 01/20/25 13:23 Completed EKG (ED Only) Stat Exams 01/20/25 13:23 Draft EKG (ED Only) Stat Exams 01/20/25 15:03 Draft XR chest 1V portable Stat Exams 01/20/25 13:23 Completed B-Type Natriuretic Peptide Stat Lab 01/20/25 13:51 Completed CBC Stat Lab 01/20/25 13:51 Completed Comprehensive Metabolic Panel Stat Lab 01/20/25 13:51 Completed D-Dimer Stat Lab 01/20/25 13:51 Completed Partial Thromboplastin Time Stat Lab 01/20/25 13:51 Completed Prothrombin Time with INR Stat Lab 01/20/25 13:51 Completed Troponin I Stat Lab 01/20/25 13:51 Completed Urinalysis, C/S if Indicated Stat Lab 01/20/25 14:21 Completed Morphine* Inj Med 01/20/25 15:02 Discontinued 4 mg IVP X1 ONE Ondansetron Inj [Zofran Inj] Med 01/20/25 15:02 Discontinued 4 mg IVP X1 ONE Sodium Chloride 0.9% 1000 ml [Ns] 1,000 ml Med 01/20/25 14:36 Discontinued IV 999 mls/hr Vital Signs Vital signs: Vital Signs Temperature 98.3 F 01/20/25 13:19 Pulse Rate 70 01/20/25 13:19 Respiratory Rate 20 01/20/25 13:19 Blood Pressure 162/80 H 01/20/25 13:19 Pulse Oximetry (%) 98 01/20/25 13:19 Oxygen Delivery Method Room Air 01/20/25 13:19 PROCEDURES: EKG Interpretation #1: Date of EK01/20/25 Rate: 69 Interpretation: Reviewed by me EKG Impression: Normal sinus rhythm Additional EKG comment: EKG shows normal sinus rhythm at 69 bpm with a first-degree block Chest Pain MDM Narrative MDM Narrative:: 59-year-old male with a history of hypertension, type 2 diabetes on insulin, pulmonary embolism on Eliquis, CAD, presents to the emergency room with a chief complaint of chest pain and shortness of breath x 2 hours. Patient is hemodynamically stable and in no apparent distress Physical examination shows clear bilateral lung sounds there is no wheezing there is no stridor or any abnormal breath sounds. The patient has a strong and regular rhythm S1 and S2 noted no clicks no JVD no murmurs The patient has a history of pulmonary emboli and is on Eliquis. A CT angio was completed and was negative for any pulmonary emboli. There was a 7 mm nodule on the right upper lobe. The patient was educated to follow-up with his primary care provider. CBC CMP troponin were all negative. BNP was negative. The patient was given pain medication with significant improvement of his symptoms. Prior to discharge the patient states he is no longer having any pain. Patient was discharged and educated to follow-up with primary care provider in the next 24 to 48 hours and return to the emergency room for any evidence of worsening signs or symptoms Patient data External records reviewed:: [facility] previous records Clinical information provided by:: patient Social determinants that could affect healthcare access:: none Patient has the following chronic illnesses:: No chronic illness How is presenting disease/condition affected by chronic disease/condition?: no chronic disease Evaluation data The following diagnostics were reviewed and interpreted by me:: lab results and radiology exam(s) Lab and/or radiology exams considered but not ordered:: Labs and radiology exams considered and ordered Interpretation Summary: CT angio-Findings: No thoracic aortic aneurysmal dilatation or dissection No thoracic aortic aneurysmal dilatation or dissection Negative for pulmonary artery emboli No pneumonia or pulmonary edema or pleural disease 7 mm pulmonary nodule right upper lobe No visualized liver or splenic lesion No gallstones Normal pancreas Mild thoracic degenerative disc disease IMPRESSION: Negative for pulmonary artery emboli No pneumonia, pulmonary edema or pleural disease 7 mm pulmonary nodule right upper lobe, recommend 6-month follow-up CT chest without contrast X-ray chest-FINDINGS: No significant cardiac enlargement. No mediastinal lymphadenopathy. Lungs are clear. Intact osseous structures IMPRESSION: No active disease Medications / Prescriptions Medications or Prescriptions considered but not ordered:: Medication given Medication administrations:: Medication Administration History Discontinued Medications Sodium Chloride (Ns) 1,000 mls @ 999 mls/hr IV .Q1H1M ONE Stop: 01/20/25 15:36 Last Infusion: 01/20/25 16:53 Dose: Infused Documented By: Admin: 01/20/25 15:23 Dose: 999 mls/hr Documented By: BD Morphine Sulfate (Morphine Sulf Inj 4 Mg/Ml Vial) 4 mg IVP X1 ONE Stop: 01/20/25 15:03 Last Admin: 01/20/25 15:25 Dose: 4 mg Documented By: BD Ondansetron HCl (Ondansetron Inj 2 Mg/Ml Inj 2 Ml) 4 mg IVP X1 ONE; Protocol Stop: 01/20/25 15:03 Last Admin: 01/20/25 15:25 Dose: 4 mg Documented By: BD Medication given Consultations Consultation(s) initiated? (list below): No Diagnosis Chest Pain Differential Diagnosis: stable angina, unstable angina pectoris, atypical chest pain, st elevation myocardial infarction, costochondritis, chest pain and other (Pulmonary emboli) Most likely diagnosis given after review of the tests above:: Chest pain Admission Indicated Admission indicated?: not indicated Admission Request Was there a request for admission?: No Disposition Plan Disposition Plan: Discharge Discharge Attestation Discharge Attestation: The patient and all family members were given an opportunity to ask questions and understood the discharge instructions. Discharge instructions specifically effects, indications for sooner follow up or return to the emergency department, and the expected course of current diagnosis. Patient condition: Stable Discharge Plan Plan Patient Disposition: HOME (Self Care) Discharge Disposition comment: Stable Prescriptions/Referrals Prescriptions/Med Rec: No Action metformin [Glucophage] 1,000 MG tablet 1,000 mg PO BID Qty: 0 loratadine [Claritin] 10 MG tablet 10 mg PO QDAY Qty: 0 gabapentin 600 MG tablet 600 mg PO TID Qty: 0 omeprazole 40 MG capsule,delayed release(DR/EC) 40 mg PO QDAY Qty: 0 losartan 100 mg Tablet 100 mg PO QDAY Qty: 0 nabumetone 500 mg Tablet 500 mg PO BID fluoxetine 20 mg Capsule 20 mg PO DAILY hydroxyzine HCl 50 mg tablet 50 mg PO HS Patient Comments: TAKE 1 TABLET BY MOUTH THREE TIMES A DAY atenolol 100 mg tablet 100 mg PO HS Patient Comments: TAKE 1 TABLET BY MOUTH EVERY DAY fenofibrate 160 mg tablet 160 mg PO .everyday Patient Comments: TAKE 1 TABLET BY MOUTH EVERY DAY tizanidine 4 mg tablet 4 mg PO HS Patient Comments: TAKE 1 TABLET EVERY 8 HOURS BY MOUTH NEEDED FOR 30 DAYS, FOR MUSCLE SPASMS. allopurinol 100 mg tablet 100 mg PO .everyday Patient Comments: TAKE 1 TABLET BY MOUTH EVERY DAY phenytoin sodium extended 100 mg capsule 100 mg PO .everyday pravastatin 80 mg tablet 80 mg PO .everyday Patient Comments: TAKE 1 TABLET BY MOUTH EVERY DAY trazodone 100 mg tablet 100 mg PO HS Patient Comments: TAKE 1 TABLET BY MOUTH AT NIGHT (DME) blood-glucose meter Kit See Rx Instructions .Route Qty: 1 0RF Rx Instructions: As directed (DME) Blood Glucose Test Strip See Rx Instructions .Route Qty: 50 0RF Rx Instructions: To use blood glucose test strips, insert a new strip into your meter, wash and dry your hands, and then prick the side of your finger with a lancing device. Apply the drop of blood to the test strip's edge and wait for the meter to display your blood glucose result. After recording the result, safely dispose of the used lancet and test strip in a sharps container. (DME) lancets Misc See Rx Instructions .Route Qty: 100 0RF Rx Instructions: Twist and pull the long piece of safety plastic off the end of the lancet. Then, place the lancet between your index and middle finger (like holding a syringe). Place and hold onto the finger you wish to draw blood from and press down on the large yellow button until you hear a click. (DME) FreeStyle Rahat 3 Plus Sensor Device See Rx Instructions .Route Qty: 2 0RF Rx Instructions: As directed (DME) FreeStyle Rahat 3 [place] Misc See Rx Instructions .Route Qty: 1 0RF Rx Instructions: As directed insulin degludec 100 unit/mL (3 mL) insulin pen 16 unit subcut QDAY Qty: 15 0RF (DME) pen needle, diabetic [Pen Needle] 29 gauge x 1/2 needle See Rx Instructions .Route Qty: 100 0RF Rx Instructions: As directed doxycycline hyclate 100 mg tablet 100 mg PO BID Qty: 14 0RF ibuprofen 800 mg tablet 800 mg PO Q6H PRN (Reason: pain) Qty: 14 0RF Referrals: Joya Jeffery FNP [Primary Care Provider] - In 1 week Problem List Clinical Impression: Chest pain Patient/Caregiver Discharge Instructions Education Materials: ED Chest Pain, Noncardiac Additional Instructions: Please follow-up with your primary care provider in the next [address] of your chest was completed and there is no pulmonary emboli. Your CT of your chest did show a 7 mm pulmonary nodule. Our radiologist recommends following up with your primary care provider for further management of this as well as a 6-month follow-up. Your blood work and urinalysis were all within normal limits. Your cardiac examination and EKG were all within normal limits For any evidence of worsening signs or symptoms return to the emergency room immediately Print Language: Bulgarian Stand Alone Forms: [employer] Award Info., Work/School Release, Patient Portal Info Letter PA/WELDER EXPLOSION Supervising Physician PA/WELDER EXPLOSION Supervising Physician: Dr. Truong
[2025-01-20 14:09] LABS: Basophils # (Auto) 0.0 Thou/mm3 (0.0-0.2); Basophils % (Auto) 1 % (0-2.5); Eosinophils # (Auto) 0.3 Thou/mm3 (0.0-0.5); Eosinophils % (Auto) 4 % (0-10); Hematocrit 40.5 % (41.0-53.0); Hemoglobin 14.1 g/dL (13.5-16.0); Immature Granulocytes Auto 0.03 Thou/mm3 (0.00-0.00); Lymphocytes # (Auto) 2.4 Thou/mm3 (1.0-4.8); Lymphocytes % (Auto) 34 % (10-50); Mean Corpuscular HGB Conc 34.8 g/dl (31.0-37.0); Mean Corpuscular Hemoglobin 28.0 pg (25.0-35.0); Mean Corpuscular Volume 81 fL (80-100); Monocytes # (Auto) 0.6 Thou/mm3 (0.0-0.8); Monocytes % (Auto) 9 % (0-12); Neutrophils # (Auto) 3.8 Thou/mm3 (1.8-7.7); Neutrophils % (Auto) 53 % (37-80); Nucleated Red Blood Cell # 0.00 Thou/mm3 (0.00-0.00); Nucleated Red Blood Cell % 0 /100 WBC (0); Platelet Count 200 Thou/mm3 (140-440); RDW Standard Deviation 40.4 fL (35.1-43.9); Red Blood Count 5.03 Miln/mm3 (4.50-5.90); White Blood Count 7.3 Thou/mm3 (3.8-10.6)
[2025-01-20 14:21] LABS: INR 1.0 (0.9-1.3); Partial Thromboplastin Time 24.5 Seconds (22.0-36.0); Prothrombin Time 10.3 Seconds (9.0-12.2)
[2025-01-20 14:22] LABS: B-Type Natriuretic Peptide 59 pg/mL (0-100)
[2025-01-20 14:23] LABS: Alanine Aminotransferase 12 U/L (10-49); Albumin, Serum 4.4 gm/dL (3.5-5.0); Albumin/Globulin Ratio 1.4 (1.2-2.2); Alkaline Phosphatase 83 U/L (46-116); Anion Gap 9 (7-16); Aspartate Amino Transferase 16 U/L (0-34); BUN/Creatinine Ratio 16 Ratio (12-20); Bilirubin,Total 0.3 mg/dL (0.3-1.2); Blood Urea Nitrogen 24 mg/dL (9-23); Calcium 9.6 mg/dL (8.3-10.6); Calcium (Corrected) 9.6 mg/dL (8.5-10.1); Carbon Dioxide 25.3 mMol/L (20.0-31.0); Chloride 104 mMol/L (98-107); Creatinine (Component) 1.5 mg/dL (0.6-1.3); Estimated Creatinine Clearance 54.8 mL/min (>60); Globulin 3.1 gm/dL (2.3-3.5); Glucose 253 mg/dL (74-106); Osmolality,Calculated 288 (275-295); Potassium 4.2 mMol/L (3.4-5.1); Sodium 138 mMol/L (136-145); Total Protein 7.5 gm/dL (5.7-8.2); Troponin I < 0.020 ng/mL (0.0-0.045); eGFR 53 See Note
[2025-01-20 14:27] LABS: Collection Type, Urine Clean Catch; Squamous Epithelial Cell,Urine 0 /hpf (0-5)
[2025-01-20 14:29] LABS: D-Dimer 332 ng/mL (<600)
[2025-01-20 14:39] LABS: Bilirubin,Urine Negative (Negative); Blood,Urine 1+ (Negative); Clarity,Urine Clear (Clear/Hazy); Color,Urine Lt-Yellow (Lt Yel-Yel); Culture Indicated,Urine Not Indicated; Glucose, Urine 3+ (Negative); Ketones,Urine Negative (Negative); Leukocyte Esterase,Urine Negative (Negative); Nitrite,Urine Negative (Negative); PH,Urine 6.5 (5.0-7.0); Protein,Urine 3+ (Neg - Trace); RBC,Urine 2 /hpf (0-3); Specific Gravity,Urine 1.022 (1.001-1.035); Urobilinogen,Urine Negative mg/dL (0.0-1.0); WBC,Urine 1 /hpf (0-5)
[2025-01-20 15:00] VITALS: BP 162/84; PULSE 64; RESP 13; TEMP 36.9; O2SAT 97
--- NOTE | 2025-01-20 15:03 | EKG_ITS ---
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
--- NOTE | 2025-01-20 15:03 | PC.NURSE ---
was talking to pt and pulse ox should pulse rate jumped to 245, o2 dropped 82% pt stated that he felt shaky and he felt his heart race. heart rate went right back to normal but pt still felt lashay, pt was placed on manager cardiac and ekg was ordered eliud magaña was notified
[2025-01-20] MEDS: SODIUM CHLORIDE 0.9% 1000 ML 1,000 ML 999 ML IV (15:23)
[2025-01-20] MEDS: MORPHINE SULF INJ 4 MG/ML VIAL IVP (15:25)
[2025-01-20] MEDS: ONDANSETRON INJ 2 MG/ML INJ 2 ML 4 MG IVP (15:25)
[2025-01-20 15:26] VITALS: PULSE 65
[2025-01-20 17:14] VITALS: BP 181/96; PULSE 62; RESP 18; TEMP 36.8; O2SAT 99
== END 2025-01-20 18:02 | disposition home or self-care (01) ==
PROVIDERS: Nurse Practitioner Family; Emergency Provider Emergency Medicine; PCP Nurse Practitioner
DX: R07.9 Chest pain, unspecified (principal); R06.02 Shortness of breath; R91.1 Solitary pulmonary nodule; I44.0 Atrioventricular block, first degree; I10 Essential (primary) hypertension; I25.10 Atherosclerotic heart disease of native coronary artery without angina pectoris; Z86.711 Personal history of pulmonary embolism; Z79.01 Long term (current) use of anticoagulants
CPT/HCPCS: 36415; 71045; 71275; 80053; 81001; 83880; 84484; 85025; 85379; 85610; 85730; 93005; 96361; 96374; 96375; 99285; A4649; J2270; J2405; J7030; Q9967